=== PATIENT | male | born 1945 | race Caucasian/White ===

== ENCOUNTER 2016-10-28 16:45 | Emergency (ER) | payer OTHER, MEDICAID ==
--- NOTE | 2016-10-28 16:55 | EDPHY ---
H & P HPI/ROS: CHIEF COMPLAINT: Suicidality HISTORY OF PRESENT ILLNESS: The patient is a 71-year-old man with history of dimension bipolar who was sent from [facility] because the nursing staff there stated that he was making suicidal statements. The patient denies this to me and to EMS. He reports that he is depressed but is not suicidal. He also reports that he has had a burning sensation throughout his entire body. He has complained of some dysuria over the last few days as well. REVIEW OF SYSTEMS: Constitutional: See HPI denies: chills, fever, recent illness, recent injury EENTM: denies: blurred vision, double vision, nose congestion Respiratory: denies: cough, shortness of breath Cardiac: denies: chest pain, irregular heart rate, lightheadedness, palpitations Gastrointestinal/Abdominal: denies: abdominal pain, diarrhea, nausea, vomiting, blood streaked stools Genitourinary: denies: dysuria, frequency, hematuria, pain Musculoskeletal: denies: joint pain, muscle pain Skin: denies: lesions, rash, jaundice, bruising Neurological: denies: headache, numbness, paresthesia, tingling, dizziness, weakness Hematologic/Lymphatic: denies: blood clots, easy bleeding, easy bruising Immunologic/allergic: denies: HIV/AIDS, transplant EXAM: GENERAL: Well-appearing, well-nourished and in no acute distress. HEAD: Atraumatic, normocephalic. EYES: Pupils equal round and reactive to light, extraocular movements intact, sclera anicteric, conjunctiva are normal. ENT: TMs normal, nares patent, oropharynx clear without exudates. Moist mucous membranes. NECK: Normal range of motion, supple without lymphadenopathy or JVD. LUNGS: Breath sounds clear to auscultation bilaterally and equal. No wheezes rales or rhonchi. HEART: Regular rate and rhythm without murmurs, rubs or gallops. ABDOMEN: Soft, nontender, normoactive bowel sounds. No guarding, no rebound. No masses appreciated. BACK: No CVA tenderness, no spinal tenderness, step-offs or deformities EXTREMITIES: Normal range of motion, no pitting or edema. No clubbing or cyanosis. NEUROLOGICAL: Cranial nerves II through XII grossly intact. Normal speech, normal gait. 5/5 strength, normal movement in all extremities, normal sensation PSYCH: Slightly flat affect. SKIN: Warm, dry, normal turgor, no visible rashes or lesions. Source: Patient Exam Limitations: No limitations - Medical/Surgical History Hx Asthma: No Hx Chronic Respiratory Disease: No Hx Diabetes: No Hx Cardiac Disease: No Hx Renal Disease: No Hx Cirrhosis: No Hx Alcoholism: No Other PMH: Dementia, bipolar - Family History Significant Family History: No pertinent family hx - Social History Smoking Status: Never smoked Alcohol Use: Sober Drug Use: None Constitutional: Initial Vital Signs Temperature (C) 36.8 C 10/28/16 16:51 Heart Rate 97 10/28/16 16:51 Respiratory Rate 18 10/28/16 16:51 Blood Pressure 121/72 H 10/28/16 16:51 O2 Sat (%) 93 10/28/16 16:51 O2 Delivery Mode Room Air Allergies/Adverse Reactions: Penicillins Allergy (Verified 10/28/16 16:50) Home Medications: Medication Instructions Recorded Abilify 2 mg (*) 10/28/16 Ativan 10/28/16 BENADRYL 10/28/16 Ferrous Sulfate 10/28/16 LAMOTRIGINE 10/28/16 Lidocaine 2% Jelly 10/28/16 Protonix 10/28/16 Tamsulosin HCl 10/28/16 Uribel Capsule 10/28/16 Zofran 10/28/16 traMADol 10/28/16 Medical Decision Making ED Course/Re-evaluation: 6:00 p.m. the patient is medically cleared for psychiatric evaluation. 8:30 p.m. patient has been evaluated by Mental Health they plan to admit to a crisis stabilization unit. 9:45 p.m. care transferred to Dr. Mak. We are awaiting psychiatric placement. Differential Diagnosis: Partial list of the Differential diagnosis considered include but were not limited to; depression, suicidality, psychosis, and although unlikely based on the history and physical exam, I also considered electrolyte abnormality, indigestion, fever, infection. - Data Points Laboratory Results: Laboratory Results 10/28/16 16:50 10/28/16 16:50 Medications Given: Discontinued Medications Lorazepam (Ativan) 0.5 mg PO EDNOW ONE Stop: 10/28/16 21:26 Last Admin: 10/28/16 22:00 Dose: 0.5 mg Trazodone HCl (Trazodone) 150 mg PO EDNOW ONE Stop: 10/28/16 21:26 Last Admin: 10/28/16 22:00 Dose: 150 mg Departure - Departure Disposition: Other Psych, Not [place] Clinical Impression: Severe major depression Dementia Qualifiers: Dementia type: unspecified type Dementia behavioral disturbance: with behavioral disturbance Qualified Code(s): F03.91 - Unspecified dementia with behavioral disturbance Condition: Fair Referrals: Patient,NotPresent [Unknown] - As per Instructions
[2016-10-28 16:57] VITALS: TEMP 98.2
[2016-10-28 17:05] LABS: % IMMATURE GRANULYOCYTES 0.2 % (0.0-1.1); ABSOLUTE IMMATURE GRANULOCYTES 0.01 10^3/uL (0.00-0.10); ADD DIFF? NO; ADD MORPH? NO; ADD SCAN? NO; ATYPICAL LYMPHOCYTE FLAG 0 (0-99); FRAGMENT RBC FLAG 0 (0-99); HEMATOCRIT 48.8 % (40.0-51.0); HEMOGLOBIN 16.1 g/dL (13.7-17.5); LEFT SHIFT FLG 0 (0-99); LIPEMIA HEMOLYSIS FLAG 80 (0-99); MEAN CELL HEMOGLOBIN 30.3 pg (27.9-34.1); MEAN CELL VOLUME 91.7 fL (81.5-99.8); MEAN PLATELET VOLUME 8.3 fL (8.7-11.7); PLATELET CLUMPS FLAG 0 (0-99); PLATELET COUNT 221 10^3/uL (150-400); RED BLOOD CELL COUNT 5.32 10^6/uL (4.40-6.38); RED CELL DISTRIBUTION WIDTH 15.4 % (11.5-15.2)
[2016-10-28 17:21] LABS: ANION GAP 9 mEq/L (8-16); CALCIUM 9.5 mg/dL (8.5-10.4); CARBON DIOXIDE 24 mEq/l (22-31); CHLORIDE 103 mEq/L (97-110); ETHANOL SERUM < 10 mg/dL (0-10); GLOMERULAR FILTRATION RATE > 60; GLUCOSE 102 mg/dL (70-100); POTASSIUM 4.5 mEq/L (3.5-5.2); SODIUM 136 mEq/L (134-144)
[2016-10-28 17:33] LABS: COLOR BLUE; LEUKOCYTE ESTERASE,URINE NEGATIVE (NEGATIVE); NITRITE,URINE NEGATIVE (NEGATIVE)
[2016-10-28] MEDS ORDERED: traZODone 50 MG TAB PO ONE (21:25)
[2016-10-28] MEDS ORDERED: LORazepam 0.5 MG TAB PO ONE (21:25)
[2016-10-28 22:09] VITALS: RESP 16; O2SAT 94
[2016-10-29 02:09] VITALS: BP 112/78; PULSE 81
== END 2016-10-29 02:10 ==
LOC: EDUNIT#
DX: F32.2 Major depressive disorder, single episode, severe without psychotic features (principal); F03.91 Unspecified dementia, unspecified severity, with behavioral disturbance
CPT/HCPCS: 80305; G0480

== ENCOUNTER 2016-11-04 08:51 | Inpatient (IN) | payer OTHER, MEDICAID ==
--- NOTE | 2016-11-04 09:11 | EDPHY ---
H & P - Medical/Surgical History Hx Asthma: No Hx Chronic Respiratory Disease: No Hx Diabetes: No Hx Cardiac Disease: No Hx Renal Disease: No Hx Cirrhosis: No Hx Alcoholism: No Hx HIV/AIDS: No Hx Splenectomy or Spleen Trauma: No Other PMH: Dementia, bipolar - Social History Smoking Status: Never smoked Time Seen by Provider: 11/04/16 08:59 HPI/ROS: CHIEF COMPLAINT: suicidal ideation HISTORY OF PRESENT ILLNESS: 71-year-old male arrives via ambulance on an M1 hold from his [facility] complaining of some increasing depression, suicidal ideation with plan to place a magnet over his pacemaker. Denies attempt. Denies pain. Denies dizziness. Denies syncope or near-syncope. Denies ingestion. Denies alcohol or drug use. Denies self-injury. Denies hallucination. REVIEW OF SYSTEMS: A ten point review of systems was performed and is negative with the exception of the items mentioned in the HPI PAST MEDICAL & SURGICAL HISTORY: Pacemaker. Bipolar disorder SOCIAL HISTORY: denies alcohol or drug use PHYSICAL EXAM (Prior to examination, patient consented to physical exam, hands were washed and my usual and customary physical exam procedures followed) 1) GENERAL: Well-developed, well-nourished, alert and oriented. Appears to be in no acute distress. 2) HEAD: Normocephalic, atraumatic 3) HEENT: Pupils equal, round, reactive to light bilaterally. Sclera anicteric. 4) NECK: Full range of motion, no meningeal signs. 5) LUNGS: Clear auscultation bilaterally, no wheezes, no rhonchi, no retractions. Left chest pacer location noted 6) HEART: Regular rate and rhythm, no murmur, no heave, no gallop. 7) ABDOMEN: No guarding, no rebound, no focal tenderness, negative McBurney's, 8) MUSCULOSKELETAL: Moving all extremities, no focal areas of tenderness, no obvious trauma. No peripheral edema or discoloration. 9) BACK: no step-off, no obvious trauma, no visual or palpable abnormality. 10) SKIN: No rash, no petechiae. 11) Psychiatric: Patient is oriented X 3, there is no agitation. DIFFERENTIAL DIAGNOSIS: is in no particular include but limited to suicidal ideation, homicidal ideation, depression (Javad,Jerardo Teetee) Constitutional: Initial Vital Signs Temperature (C) 36.3 C 11/04/16 09:09 Heart Rate 75 11/04/16 09:09 Respiratory Rate 15 11/04/16 09:09 Blood Pressure 128/67 H 11/04/16 09:09 O2 Sat (%) 97 11/04/16 09:09 O2 Delivery Mode Room Air Allergies/Adverse Reactions: Penicillins Allergy (Verified 11/04/16 09:06) Home Medications: Medication Instructions Recorded Ativan 10/28/16 Ferrous Sulfate 10/28/16 Protonix 10/28/16 Uribel Capsule 10/28/16 Zofran 10/28/16 traMADol 10/28/16 ARIPiprazole [Abilify 2 mg (*)] 11/04/16 Colace 11/04/16 Flomax 11/04/16 LORazepam [Ativan (*)] 0.5 mg PO 11/04/16 LaMICtal 11/04/16 Lidocaine 2% Jelly [Lidocaine 2% 11/04/16 Jelly (*)] Meth/Meblue/Sod Phos/Psal/Hyos 1 each PO 11/04/16 [Uro-Mp Capsule] Miralax 17 gm (*) 11/04/16 Mirtazapine [Remeron soltab 15 mg 15 mg PO DAILY 11/04/16 (*)] Pantoprazole Sodium [Protonix 40mg 40 mg PO BID 11/04/16 (*)] Seroquel 11/04/16 Sucralfate [Carafate] 1 gm PO 11/04/16 Tamsulosin HCl [Flomax 0.4 MG (*)] 0.4 mg PO DAILY 11/04/16 lamoTRIgine [LamICTAL 100 MG (*)] 200 mg PO 11/04/16 traZODone [traZODone 150MG (*)] 11/04/16 Medical Decision Making ED Course/Re-evaluation: 9:20 a.m.: Discussed case with Dr Sweet in ER., old medical records reviewed. The patient was in the emergency department 1 week ago for similar complaints. 3:00 p.m.: Patient remains calm and cooperative. Mental health test engine evaluator looking for placement possibly [address] 5:00 p.m.: Care turned over to Dr. Diaz in the ER (Jerardo Farnsworth) 6:00 p.m.-this patient has been accepted to [address] [place] [address] Mota[address] (Jenni Diaz) - Data Points Laboratory Results: Laboratory Results 11/04/16 09:15 11/04/16 09:15 11/04/16 11/04/16 11/04/16 09:19 09:15 09:15 WBC 5.71 10^3/uL 10^3/uL (3.80-9.50) RBC 5.28 10^6/uL 10^6/uL (4.40-6.38) Hgb 16.0 g/dL g/dL (13.7-17.5) Hct 48.8 % % (40.0-51.0) MCV 92.4 fL fL (81.5-99.8) MCH 30.3 pg pg (27.9-34.1) MCHC 32.8 g/dL g/dL (32.4-36.7) RDW 14.7 % % (11.5-15.2) Plt Count 207 10^3/uL 10^3/uL (150-400) MPV 8.4 fL L fL (8.7-11.7) Neut % (Auto) 64.2 % % (39.3-74.2) Lymph % (Auto) 20.7 % % (15.0-45.0) Toombs % (Auto) 11.4 % % (4.5-13.0) Eos % (Auto) 3.2 % % (0.6-7.6) Baso % (Auto) 0.5 % % (0.3-1.7) Nucleat RBC Rel Count 0.0 % % (0.0-0.2) Absolute Neuts (auto) 3.67 10^3/uL 10^3/uL (1.70-6.50) Absolute Lymphs (auto) 1.18 10^3/uL 10^3/uL (1.00-3.00) Absolute Monos (auto) 0.65 10^3/uL 10^3/uL (0.30-0.80) Absolute Eos (auto) 0.18 10^3/uL 10^3/uL (0.03-0.40) Absolute Basos (auto) 0.03 10^3/uL 10^3/uL (0.02-0.10) Absolute Nucleated RBC 0.00 10^3/uL 10^3/uL (0-0.01) Immature Gran % 0.0 % % (0.0-1.1) Immature Gran # 0.00 10^3/uL 10^3/uL (0.00-0.10) Sodium 139 mEq/L mEq/L (134-144) Potassium 4.1 mEq/L mEq/L (3.5-5.2) Chloride 104 mEq/L mEq/L (97-110) Carbon Dioxide 25 mEq/l mEq/l (22-31) Anion Gap 10 mEq/L mEq/L (8-16) BUN 15 mg/dL mg/dL (7-23) Creatinine 1.0 mg/dL mg/dL (0.7-1.3) Estimated GFR > 60 Glucose 87 mg/dL mg/dL (70-100) Calcium 9.3 mg/dL mg/dL (8.5-10.4) TSH Pending Salicylates < 1.0 mg/dL L mg/dL (2.0-20.0) Urine Opiates Screen Acetaminophen < 10 mcg/mL L mcg/mL (10-30) Urine Barbiturates Ur Phencyclidine Scrn Ur Amphetamine Screen U Benzodiazepines Scrn Urine Cocaine Screen U Marijuana (THC) Screen Ethyl Alcohol < 10 mg/dL mg/dL (0-10) 11/04/16 09:00 WBC RBC Hgb Hct MCV MCH MCHC RDW Plt Count MPV Neut % (Auto) Lymph % (Auto) Toombs % (Auto) Eos % (Auto) Baso % (Auto) Nucleat RBC Rel Count Absolute Neuts (auto) Absolute Lymphs (auto) Absolute Monos (auto) Absolute Eos (auto) Absolute Basos (auto) Absolute Nucleated RBC Immature Gran % Immature Gran # Sodium Potassium Chloride Carbon Dioxide Anion Gap BUN Creatinine Estimated GFR Glucose Calcium TSH Salicylates Urine Opiates Screen NEGATIVE (NEGATIVE) Acetaminophen Urine Barbiturates NEGATIVE (NEGATIVE) Ur Phencyclidine Scrn NEGATIVE (NEGATIVE) Ur Amphetamine Screen NEGATIVE (NEGATIVE) U Benzodiazepines Scrn NEGATIVE (NEGATIVE) Urine Cocaine Screen NEGATIVE (NEGATIVE) U Marijuana (THC) Screen NEGATIVE (NEGATIVE) Ethyl Alcohol Departure - Departure Disposition: [facility] IP Clinical Impression: Severe major depression, Suicidal ideation Condition: Fair Referrals: Patient,NotPresent [Unknown] - As per Instructions
--- NOTE | 2016-11-04 09:26 | CPEKG ---
Heart Rate: 72 RR Interval: 833 P-R Interval: 156 QRSD Interval: 176 QT Interval: 444 QTC Interval: 486 P [place]: -64 QRS [place]: -78 T Wave [place]: 108 EKG Severity - ABNORMAL ECG - EKG Impression: ATRIAL-SENSED VENTRICULAR-PACED COMPLEXES EKG Impression: NONSPECIFIC IVCD WITH LAD EKG Impression: LVH WITH SECONDARY REPOLARIZATION ABNORMALITY Electronically Signed By: Jenni Diaz 04-Nov-2016 23:05:23
[2016-11-04 09:27] LABS: ADD DIFF? NO; ADD MORPH? NO; ADD SCAN? NO; ATYPICAL LYMPHOCYTE FLAG 0 (0-99); FRAGMENT RBC FLAG 0 (0-99); HEMATOCRIT 48.8 % (40.0-51.0); LEFT SHIFT FLG 0 (0-99); LIPEMIA HEMOLYSIS FLAG 80 (0-99); MEAN CELL HEMOGLOBIN 30.3 pg (27.9-34.1); MEAN CELL HEMOGLOBIN CONCENTR. 32.8 g/dL (32.4-36.7); MEAN CELL VOLUME 92.4 fL (81.5-99.8); MEAN PLATELET VOLUME 8.4 fL (8.7-11.7); PLATELET CLUMPS FLAG 0 (0-99); PLATELET COUNT 207 10^3/uL (150-400); RED BLOOD CELL COUNT 5.28 10^6/uL (4.40-6.38); RED CELL DISTRIBUTION WIDTH 14.7 % (11.5-15.2)
[2016-11-04 09:45] LABS: ANION GAP 10 mEq/L (8-16); CALCIUM 9.3 mg/dL (8.5-10.4); CARBON DIOXIDE 25 mEq/l (22-31); CHLORIDE 104 mEq/L (97-110); ETHANOL SERUM < 10 mg/dL (0-10); GLOMERULAR FILTRATION RATE > 60; GLUCOSE 87 mg/dL (70-100); POTASSIUM 4.1 mEq/L (3.5-5.2); SALICYLATE < 1.0 mg/dL (2.0-20.0); SODIUM 139 mEq/L (134-144)
[2016-11-04] MEDS ORDERED: MAGNESIUM HYDROXIDE 30 ML UDCUP PO PRN (22:07)
[2016-11-04] MEDS ORDERED: MAG HYDROX/AL HYDROX/SIMETH 30 ML UDCUP PO PRN (22:07)
[2016-11-04] MEDS ORDERED: NICOTINE POLACRILEX 2 MG GUM B PRN (22:07)
[2016-11-04] MEDS ORDERED: MELATONIN 3 MG TAB PO PRN (22:08)
[2016-11-04] MEDS ORDERED: MIRTAZAPINE 15 MG TAB PO SCH (22:15)
[2016-11-05] MEDS: LORazepam 0.5 MG TAB PO PRN ×2 (07:59→16:44)
[2016-11-05] MEDS: OLANZapine 5 MG TAB PO SCH ×3 (09:36→18:54)
[2016-11-05] MEDS: TAMSULOSIN HCL 0.4 MG CAP PO SCH (09:36)
[2016-11-05] MEDS: FLUoxetine 10 MG CAP PO SCH (09:36)
[2016-11-05] MEDS: OLANZapine 2.5 MG TAB PO PRN (09:40)
[2016-11-05] MEDS: PANTOPRAZOLE SODIUM 40 MG TAB PO SCH (09:40)
[2016-11-05] MEDS: PSYLLIUM METAMUCIL 1 PKT PO SCH (09:40)
--- NOTE | 2016-11-05 10:14 | BAPA ---
[f rep st] ADMISSION PSYCHIATRIC ASSESSMENT CHIEF COMPLAINT: The patient is a 71-year-old white male whose chief complaint to me today is, "I'm not doing so well today." HISTORY OF PRESENT ILLNESS: The patient is a 71-year-old male with a history of bipolar mood disorder. He has been hospitalized for manic episodes. He has also been hospitalized for depressive episodes. He relates to me that he has been hospitalized multiple times over his life span, but thinks this is the first time he has been hospitalized here at [facility]. I am unable to find a recent previous admission for him. He has lived independently until a few months ago. He moved into the [facility] this summer. That has been stressful for him. His anxiety is increased, and his mood has dropped since that point in time. He was recently hospitalized at [facility] and treated at [facility] for awhile. I do not yet have all the records from that, and the patient is vague about this piece of his history. Today, he complains of being "messed up." He says that he became more depressed and extremely anxious and tried to kill himself. He says, "I tried to break my pacemaker." He relates a history of having a pacemaker/ defibrillator placed several years ago and replaced once. He says that this was done because "my heart stopped." He tells me his upsetter helper is Adams Nation MD. He has not seen his upsetter helper in a while. The history suggests that he was looking for some kind of magnet with which he could effect his pacemaker to actually have it kill him. At this point in time , he says he does not want to . He is not having any more ongoing suicidal thinking. When he gets overwhelmed by anxiety, he gets so uncomfortable that he wishes he were . While he is anxious now, he does not feel that bad and does not want to . He cites his daughter, Esther, as a reason to remain alive. He understands that his will hurt her, and because of this, he does not want to . He endorses having anxiety that builds to panic proportions. He endorses anxiety can build to where, "I start burning up, and I feel like I can't take it anymore." He gets tremulous, heart palpitations, gastrointestinal distress, and some shortness of breath. It does sound like he is having panic attacks. He also admits that his mood has been very depressed over the past 2 weeks. He endorses multiple symptoms of depression (see below) and appears to be going through a recurrence or exacerbation of his underlying bipolar mood disorder. The other issue about this patient is he does have a history of alcohol abuse. He readily admits that he is an alcoholic. He quit drinking around the age of 61 but has had a couple of relapses since that time. He says he has been sober for 1 year at this point in time. CURRENT REVIEW OF SYSTEMS: He endorses depressed mood for more than 2 weeks at this point in time. His sleep has been poor, hard to fall asleep and hard to maintain sleep. His appetite has been down, and he thinks he has lost weight. His concentration is low. His energy is very low. He endorses feelings of guilt. He denies ongoing or active suicidal thinking at this point in time. He denies auditory or visual hallucinations. He does endorse feeling very anxious with significant tremulousness. He does not think he is in a panic attack but is near a panic attack. SOCIAL HISTORY: He denies tobacco use. He admits to a history of alcohol abuse but is not drinking at this point in time and has been sober for more than a year. He denies substance use. He has 1 daughter, Esther, who lives in [place]. He has an ex- in this area, but he is not close to her. He lived much of his life in [place] and worked as an auto parts clerk. ALLERGIES: He has an allergy to penicillin. MEDICATIONS: He does not know his active medications. I reviewed his record, which suggests that he has been on trazodone, Ativan, Protonix, Flomax, tramadol , Uribel, Zofran, Colace, MiraLAX, iron, Seroquel, and Lamictal. PAST MEDICAL HISTORY: Remarkable for heart problems and having a pacemaker/ defibrillator placed. I do not have further details at this point in time. He denies depression. He denies hypertension. PAST PSYCHIATRIC HISTORY: Remarkable for treatment for bipolar mood disorder. He thinks his last manic episode was about 4 months ago. MENTAL STATUS EXAMINATION: He is awake and alert. He moves slowly today. He is poorly groomed, unshaven and looks unkempt. Some of his clothes are dirty. He appears nervous. His leg shakes throughout the interview. His eyes are downcast, he makes limited eye contact through the interview. His speech is slow in rate and monotonous in tone. His stated mood and affect are congruent, both depressed. He does not appear to be distracted by internal stimuli during the interview. His thought processes are slow but linear. His thought content is mostly around his anxiety and his depressed mood. His insight and judgment are poor to fair at times. IMPRESSION: The patient is a 71-year-old white male with bipolar mood disorder who appears to be presenting with a severe depressive disorder. This is complicated by significant anxiety that does appear to reach panic proportions. Also, he worries about his anxiety, and it has affected his progress through life so I think he has panic disorder as well. His current medications are proved to be inadequate. I talked to him about trying a combination of olanzapine and fluoxetine. Olanzapine can be a very potent anxiety product development engineer as well as a mood stabilizer. Fluoxetine, of course, is a good antidepressant and anxiety product development engineer as well. This combination might prove helpful for him. Since the main problem with olanzapine is increased appetite and weight gain and we would like to see some increased appetite in this patient, he might actually benefit from the potential downside. Also would give the largest dose at bedtime to see if it can help with sleep. We can use benzodiazepines temporarily, but I would not suggest them long-term in this patient as they are likely to be habituating and predispose him to falls. We will try some adjustments to his medication regimen and see if we can help get a better handle on his anxiety and depressed mood. He is admitted on 72- hour mental health hold. He is followed at the [facility] and might be a good candidate for [facility] when he improves. He is sober off alcohol, and we encouraged him to continue his sobriety. ASSESSMENT: 1. Bipolar mood disorder, most current episode depressed, severe without psychotic features. 2. History of alcohol dependence. 3. Panic disorder. 4. Cardiac problems, would like more history on this. 5. Benign prostatic hyperplasia. 6. Constipation. PLAN: 1. Admit on a 72-hour mental health hold which expires 11/07/16 at 0800. 2. Continue to collect collateral information. 3. Start a combination of olanzapine and fluoxetine. 4. Restart usual outpatient medications to try to simplify medication regimen. 5. Consider followup with [facility] and possibly transition through [facility] back to outpatient placement. /[id number]/MODL MTDD
--- NOTE | 2016-11-05 15:05 | BCON ---
[f rep st] BEHAVIORAL HEALTH CONSULTATION INTERNAL MEDICINE CONSULTATION DATE OF CONSULTATION: 11/05/2016 REFERRING PHYSICIAN: Sarah Mota MD REASON FOR REFERRAL: Medical clearance for inpatient behavioral health stay. HISTORY OF PRESENT ILLNESS: This patient was transferred from [facility] where he lives for depression and suicidal ideation. He was planning to place a magnet over his pacemaker, thinking that this would cause it to malfunction and bring about his . He was evaluated by the mental health team and admitted for further psychiatric care. He currently reports that he is groggy and that he did not sleep well last night. Otherwise, he is without any acute complaints. PAST MEDICAL HISTORY: 1. Cardiac dysrhythmia, though he is unable to state what exactly it was. 2. BPH. 3. Dysuria. 4. Bipolar disorder. 5. Central and obstructive sleep apnea. 6. Iron deficiency anemia. 7. Hypogonadism. MEDICATIONS: Prior to admission, he is unclear on what medications he was taking. The medical record reports: 1. Trazodone 150 mg at bedtime. 2. Lamotrigine 200 mg p.o. daily. 3. Tamsulosin 0.4 mg p.o. daily. 4. Sucralfate 1 g p.o. daily. 5. Pantoprazole 40 mg p.o. twice daily. 6. Mirtazapine 15 mg p.o. daily. 7. Methylene blue/hyoscyamine capsules 1 p.o. daily. 8. Lorazepam 0.5 mg. 9. Aripiprazole 2 mg. 10. Tramadol. 11. Iron sulfate. However, many of these are likely to be old prescriptions. ALLERGIES: Listed to penicillins. SOCIAL HISTORY: He lives at [facility] for approximately 2 months. Prior to that, he had a psychiatric hospitalization. 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 He is a nonsmoker. FAMILY HISTORY: Noncontributory. REVIEW OF SYSTEMS: He reports a reduced appetite. He denies nausea, vomiting, constipation, or diarrhea. He reports hot flashes in which he feels that his face and chest are getting hot. These happen periodically and occasionally awaken him from sleep. He feels groggy and thinks that he did not sleep well last night, partly due to anxiety about his admission to Inpatient Psychiatry. He denies cough, dyspnea, fevers, chills, weight change, chest pain, palpitations. He has no dysuria currently, though he does have urinary frequency. He denies joint pain or joint swelling. He denies skin rash or skin breakdown. PHYSICAL EXAM: VITAL SIGNS: Blood pressure is 146/67, but otherwise has not been elevated during his stay. Heart rate is 80, respiratory rate is 14, oxygen saturation is 99% on room air. Temperature is 36.5 degrees centigrade. His weight is 76.2, for a body mass index of 24.1. GENERAL: This is an elderly man, appears his chronologic age, somewhat unkempt, cooperative and in no acute distress. HEENT: Extraocular movements are intact. Pupils are equal , round, reactive to light. Mucous membranes are moist. Dentition is in fair condition with several missing teeth in the left anterior mandible. He has a crowded airway, Mallampati class 3-4. NECK: Supple. HEART: There is a regular rate and rhythm with no murmurs, rubs, or gallops. LUNGS: Clear to auscultation bilaterally. ABDOMEN: Soft, nontender, nondistended with normoactive bowel sounds. EXTREMITIES: There is no cyanosis, clubbing, or edema. NEUROLOGIC: He is alert, he is oriented to his location and situation. He is off by 2 on the date, thinking that it is November 03 rather than . Cranial nerves 2-12 are grossly intact. There is no focal weakness. Sensation is intact to light touch. He has a mild resting tremor in the right upper extremity. Gait is within normal limits. LABORATORY STUDIES: Drawn in the emergency department: CBC was overall within normal limits. He had a very slight decrement of mean platelet volume of no clinical significance. Serum chemistry revealed normal renal function and electrolytes. TSH was normal at 0.964. Toxicology screen in the serum was negative for salicylates, acetaminophen or ethyl alcohol, and in the urine was negative for substances of abuse. Upon further chart review, he had anemia with profound iron deficiency as well as a positive Hemoccult in 2013. He also had profound hypogonadism with a very low free testosterone level. Again, this was in 2013. He had a normal lipid panel. There have been multiple urinalyses done in 2014, 1 of which appeared positive for infection; however, urine cultures have been negative. He had a positive Clostridium difficile in stool test in 2013. ASSESSMENT/RECOMMENDATIONS: 1. Mental health issues, pending further evaluation and management per Psychiatry and the mental health team. 2. Benign prostatic hypertrophy. Advised continuing tamsulosin. 3. Presence of pacemaker. It is unlikely that he could do himself any serious harm with a magnet. 4. Hot flashes, unclear etiology. Consider repeating testosterone testing, especially if his mood state proves refractory. There was no actual flushing observed, though he reported he was feeling hot at the time of the exam. 5. Sleep apnea, both central and obstructive. On his sleep study of 09/14/2013 , it was recommended that he use BiPAP as well as an ASV for both central and obstructive sleep apnea. It would be worth finding out if he ever obtained the device and if he has been using it. If so, it should be continued while he is here. 6. Possible dementia with disorientation to the date, simple concrete answers to questions, and a poor historian regarding medical history. Consider cognitive testing per Speech Therapy or Clinical Psychology. A speech therapy evaluation could be obtained while he is inpatient. 7. Tremor of unclear etiology. No particular further evaluation or management is indicated. I see no medical contraindications to this patient's continued stay on the inpatient behavioral health unit or to any psychiatric medications or procedures. Thank you very much for including me in the care of this patient and please do not hesitate to contact me or the hospitalist service should there be need for further medical evaluation. /[id number]/MODL MTDD
[2016-11-06] MEDS: PSYLLIUM METAMUCIL 1 PKT PO SCH (10:22)
[2016-11-06] MEDS: TAMSULOSIN HCL 0.4 MG CAP PO SCH (10:22)
[2016-11-06] MEDS: PANTOPRAZOLE SODIUM 40 MG TAB PO SCH (10:22)
[2016-11-06] MEDS: FLUoxetine 10 MG CAP PO SCH (10:22)
[2016-11-06] MEDS: LORazepam 0.5 MG TAB PO PRN ×2 (12:17→17:23)
--- NOTE | 2016-11-06 14:36 | SOAPPROG ---
SOAP Progress Note Assessment/Plan: Assessment: 71 yo man with prior h/o bipolar. He moved into [facility] this Summer and appears to have experienced worsening depression and anxiety as a result of the transition. 11/06/16 14:31 Plan: 1. Continue on Olanzapine and fluoxetine combo. 2. Patient appears to have some word-finding, memory and decision making problems. It's possible he is suffering from dementia in addition to mood related problems. The combination of cognitive impairment as well as the situational stressors of [facility] may be most likely cause of his depression and anxiety, rather than a true manifestation of his bipolar disorder. Subjective: Met with patient, reviewed chart and discussed with staff. Patient c/o feeling "dizzy" and "crummy." He reports these are physical sxs and denies he feels bad d/t depressed mood or anxiety. He denies any SI/HI, no paranoia or psychosis. He was unsteady on his feet earlier, but VSS. He is on fall precautions and LOS. Objective: Vital Signs Temp Pulse Resp BP Pulse Ox 36.6 C 70 12 128/62 H 94 11/06/16 06:48 11/06/16 06:48 11/06/16 06:48 11/06/16 06:48 11/06/16 06:48 MSE: Lying in bed, patient sits up and stands up without stumbling or falling down. Denies feeling lightheaded or dizzy, though reported these sxs earlier. VSS. Affect: Flat Mood: "Crummy" TP: Disorganized TC: Denies any SI/HI, no AH /VH Insight/Judgment: Poor - Time Spent With Patient Time Spent With Patient: 20" - Pending Discharge Pending Discharge Within 24 Hours: No Pending Discharge Within 48 Hours: No ICD10 Worksheet Patient Problems: Problems Problem Status Onset Severe major depression Acute Suicidal ideation Acute
[2016-11-06] MEDS: OLANZapine 5 MG TAB PO SCH (20:38)
[2016-11-06] MEDS: MELATONIN 3 MG TAB PO PRN (22:06)
[2016-11-06] MEDS: OLANZapine 2.5 MG TAB PO PRN (22:08)
[2016-11-07] MEDS: FLUoxetine 10 MG CAP PO SCH (08:30)
[2016-11-07] MEDS: PANTOPRAZOLE SODIUM 40 MG TAB PO SCH (08:30)
[2016-11-07] MEDS: TAMSULOSIN HCL 0.4 MG CAP PO SCH (08:30)
[2016-11-07] MEDS: PSYLLIUM METAMUCIL 1 PKT PO SCH (08:30)
--- NOTE | 2016-11-07 13:32 | SOAPPROG ---
PIERRE Progress Note Assessment/Plan: Assessment: 71 yo man with prior h/o bipolar. He moved into [facility] this Summer and appears to have experienced worsening depression and anxiety as a result of the transition. 11/06/16 14:31 Plan: 1. Continue on Olanzapine and fluoxetine combo. 2. Patient appears to have some word-finding, memory and decision making problems. It's possible he is suffering from dementia in addition to mood related problems. The combination of cognitive impairment as well as the situational stressors of moving to [facility] may be most likely cause of his depression and anxiety, rather than a true manifestation of his bipolar disorder. 11/07/16 13:26 1. Patient more alert and engaging in conversation. Also demonstrates better recall of facts and more fluent speech. He does have some difficulty with recent hospitalization details, can't exactly remember where or when he was hospitalized. 2. Admits that reason he was depressed and wanted to was transition to [facility]. He says his daughter placed him there d/t multiple recent hospitalizations and because "she didn't want to deal with me anymore." He says he wished he could go to assisted living b/c he'd have "more control" and "freedom." But says he is resigned to returning to [facility] and says, "it's not so bad." He denies wanting to and says he isn't having any SI/HI. No signs or sxs of karthik or psychosis present. 3. Will reduce Zyprexa to 2.5mg as this may be sufficient given his age. Prozac should help with anxiety/situational depression. Recommend increased activities and routine to give him something to do at [facility]. 4. Change to voluntary status 5. Could return to [facility] Tuesday or Tuesday. Subjective: Met with patient and discussed with staff. Patient is more alert and engaging in conversation today. He says he had been living in trailer with his [facility] in [place] until she in 10/2015. After that, patient decompensated pretty quickly. He says he wasn't eating and lost almost 50lbs over several months. He was hospitalized several times, but can't remember where (thinks he was at [facility]). His daughter decided to place him at [facility] because "she didn't want to deal with all the hospitals." He says he "hated it there at first" and that's why he started feeling depressed and wanted to . He says he wanted to be in an assisted living facility where he'd have "more control" and "freedom." He says now, "I don't want to " and admits that [facility] "isn't that bad, they take care of me at least." He is willing to return there and see Dr. Leija at [facility]. Objective: Vital Signs Temp Pulse Resp BP Pulse Ox 36.5 C 70 16 123/61 H 93 11/07/16 06:00 11/07/16 06:00 11/07/16 06:00 11/07/16 06:00 11/07/16 06:00 MSE: Pleasant, cooperative, more talkative. Affect: Euthymic Mood: "OK" TP: Linear, goal-directed TC: Denies any SI/HI, no AH/VH, no paranoia Insight/ Judgment: Fair - Time Spent With Patient Time Spent With Patient: 25" - Pending Discharge Pending Discharge Within 24 Hours: No Pending Discharge Within 48 Hours: Yes Pending Discharge Date: 11/09/16 (Could return to [facility] Tue or ) Pending Discharge Time: 11:00 ICD10 Worksheet Patient Problems: Problems Problem Status Onset Severe major depression Acute Suicidal ideation Acute
[2016-11-07] MEDS ORDERED: OLANZapine 5 MG TAB PO SCH (13:35)
[2016-11-07] MEDS: LORazepam 0.5 MG TAB PO PRN ×2 (14:27→23:32)
[2016-11-07] MEDS: OLANZapine 2.5 MG TAB PO PRN (14:27)
[2016-11-07] MEDS: MELATONIN 3 MG TAB PO PRN (20:10)
[2016-11-07] MEDS: OLANZapine 2.5 MG TAB PO SCH (20:12)
[2016-11-08] MEDS: FLUoxetine 10 MG CAP PO SCH (08:50)
[2016-11-08] MEDS: TAMSULOSIN HCL 0.4 MG CAP PO SCH (08:50)
[2016-11-08] MEDS: PANTOPRAZOLE SODIUM 40 MG TAB PO SCH (08:50)
[2016-11-08] MEDS: PSYLLIUM METAMUCIL 1 PKT PO SCH (08:50)
[2016-11-08] MEDS: GABAPENTIN 100 MG CAP PO SCH ×2 (16:21→19:58)
[2016-11-08] MEDS: MIRTAZAPINE 15 MG TAB PO SCH ×2 (16:22→19:55)
[2016-11-08] MEDS: LORazepam 0.5 MG TAB PO PRN (16:23)
--- NOTE | 2016-11-08 16:24 | SOAPPROG ---
SOAP Progress Note Assessment/Plan: Assessment: Bipolar Disorder type II, depressed with psychotic features Unspecified Anxiety Disorder Insomnia Akathisia versus Restless Leg Syndrome Mild Neurocognitive Disorder - possibly from past alcohol abuse Tardive Dyskinesia Patient reports chronic depression and anxiety and poor sleep, probable somatic delusions. Reports mild benefit from Olanzapine/Fluoxetine but appears restless. Denies SI but reports hopelessness and helplessness and severe somatic anxiety interfering with ability to engage to counseling, groups, or function in [facility]. Concern for anticonvulsant withdrawal (was on Lamictal 250mg prior to admit) Plan: Continue Olanzapine 2.5mg PO QHS Discontinue Fluoxetine (?akathisia), start Remeron 7.5mg PO QHS. Discussed risk of sedation and bipolar symptoms Start Gabapentin 100mg PO TID for akathisia Fall precautions, walker per PT Monitor mood/anxiety and ability to attend groups and interact appropriately Check B12 due to reduced cognition Check UA to rule out UTI (has BPH) 11/08/16 16:17 11/08/16 16:39 11/08/16 16:43 Subjective: Patient reports recurrent anxiety and depression for many years. Reports fear of physical symptoms and reduced memory for unclear amount of time. Reports past alcoholism but no drinking for past 6 months. Reports possible past benefit from [place] but hasn't taken in many years. Reports chronic insomnia, disrupted sleep, and restlessness. Reports no SI today but reports thoughts of and suicide prior to admit. Reports severe anxiety and sadness and unable to concentrate or engage in any activities and repeated fear of doom. Denies paranoia or AH. Denies constipation or difficulty urinating but possible fevers/sweats. Denies focal weakness but reports chronic slowing and balance problems. Objective: Vital Signs Temp Pulse Resp BP Pulse Ox 36.6 C 74 17 124/60 H 92 11/08/16 06:00 11/08/16 06:00 11/08/16 06:00 11/08/16 06:00 11/08/16 06:00 Alert WM. Tardive facial movements. Mild cogwheeling/slowing. Speech soft RRR. Mood: depressed/anxious. Affect sad, poor eye contact. Denies SI but reports thoughts of wanting to be , denies plan to harm self. Denies HI, AH. Somatic preoccupation. Possible somatic delusions, reporting feeling that head is burning and skin is crawling. Limited insight, questionable judgment. Frequently tapping leg. Glasses. Walks slowly. SLUMS , 04/11 word recall, 07/15 story recall - Time Spent With Patient Time Spent With Patient: 40 - Pending Discharge Pending Discharge Within 24 Hours: No Pending Discharge Within 48 Hours: No Physical Exam - Physical Exam General Appearance: alert, thin Neuro/Psych: alert, oriented x 3, cognition abnormalities, depressed affect ICD10 Worksheet Patient Problems: Problems Problem Status Onset Severe major depression Acute Suicidal ideation Acute
[2016-11-08] MEDS: OLANZapine 2.5 MG TAB PO PRN (17:26)
[2016-11-08] MEDS: OLANZapine 2.5 MG TAB PO SCH (19:56)
[2016-11-08] MEDS: MELATONIN 3 MG TAB PO PRN (19:57)
[2016-11-09] MEDS: GABAPENTIN 100 MG CAP PO SCH ×3 (08:19→20:24)
[2016-11-09] MEDS: LORazepam 0.5 MG TAB PO PRN (08:20)
[2016-11-09] MEDS: PSYLLIUM METAMUCIL 1 PKT PO SCH (08:20)
[2016-11-09] MEDS: TAMSULOSIN HCL 0.4 MG CAP PO SCH (08:20)
[2016-11-09] MEDS: PANTOPRAZOLE SODIUM 40 MG TAB PO SCH (08:20)
[2016-11-09 10:12] LABS: COLOR YELLOW; LEUKOCYTE ESTERASE,URINE NEGATIVE (NEGATIVE); NITRITE,URINE NEGATIVE (NEGATIVE)
--- NOTE | 2016-11-09 11:03 | SOAPPROG ---
SOAP Progress Note Assessment/Plan: Assessment: Bipolar Disorder type II, depressed with psychotic features Unspecified Anxiety Disorder Insomnia Akathisia versus Restless Leg Syndrome Mild Neurocognitive Disorder - possibly from past alcohol use Tardive Dyskinesia Patient slept better last night but had severe anxiety this AM and received PRN ativan with excessive sedation. Patient has anxiety symptoms related to severe depression and probable psychotic /nihilistic features but likely had akathisia from Prozac. Patient has reduced restlessness with gabapentin Concern patient is gravely disabled due to poor appetite, weight loss, and symptoms interfering with ability to interact appropriately with caregivers. Plan: Continue Olanzapine 2.5mg PO QHS - started this hospitalization Continue Remeron 7.5mg PO QHS (started 11/08/16 for depression, insomnia) Continue Gabapentin 100mg PO TID for akathisia Discontinue PRN Ativan Start Gabapentin 100mg PO TID PRN anxiety Monitor PO food intake. Weights three times a week. Fall precautions, walker per PT Monitor mood/anxiety and ability to attend groups and interact appropriately, somatic/nihilistic preoccupation B12 pending Plan discharge back to [facility] if anxiety/mood/appetite symptoms improve 11/09/16 11:03 Subjective: Patient reports feeling 'better but groggy.' Reports some reduction in anxiety and restlessness yesterday with low dose gabapentin. Reports sleeping well overnight but this AM felt anxious that he was being discharged today and fearful 'that I will never feel better.' Reports low mood and feeling hopeless and fearful that something bad is happening to him, fearing he won't get any better or feel better ever in the future. Reports after taking PRN ativan this morning having less anxiety but feels sedated and drowsy. Spoke on phone with daughter yesterday, reports missing her and wishing that she lived in [place] to visit him. Reports mild nausea and lack of appetite. Denies pain or weakness or vomiting; denies constipation or diarrhea. Objective: Vital Signs Temp Pulse Resp BP Pulse Ox 36.6 C 80 20 131/70 H 95 11/09/16 06:00 11/09/16 08:30 11/09/16 08:30 11/09/16 08:30 11/09/16 08:30 UA negative B12 pending Staff report patient has poor PO intake, eating 25% meals Disheveled WM, walks slowly with walker, limited eye contact, glasses. Reports depressed mood and feeling tired. Reports anxiety this AM but not now. Thoughts briefly organized with minimal information. Denies SI or HI. Nihilistic content, possible nihilistic delusions and somatic anxiety. Poor insight, questionable judgment. Denies AH or VH. Memory intact to major events with poor detail. - Time Spent With Patient Time Spent With Patient: 20 minutes - Pending Discharge Pending Discharge Within 24 Hours: No Pending Discharge Within 48 Hours: No Physical Exam - Physical Exam General Appearance: alert, anxiety Neuro/Psych: no motor/sensory deficits, abnormal gait, cognition abnormalities, depressed affect (walks slowly) ICD10 Worksheet Patient Problems: Problems Problem Status Onset Bipolar II, mixed, severe with psychotic behavior Acute Constipation Acute Insomnia Acute Suicidal ideation Acute Severe major depression Acute
[2016-11-09] MEDS: OLANZapine 2.5 MG TAB PO SCH (20:24)
[2016-11-09] MEDS: MIRTAZAPINE 15 MG TAB PO SCH (20:25)
[2016-11-09] MEDS: MELATONIN 3 MG TAB PO PRN (21:47)
[2016-11-10] MEDS: ACETAMINOPHEN 325 MG TAB PO PRN (00:15)
[2016-11-10] MEDS: GABAPENTIN 100 MG CAP PO PRN ×2 (04:19→13:48)
[2016-11-10] MEDS: FERROUS SULFATE 325 MG TAB PO SCH (08:00)
[2016-11-10] MEDS: TAMSULOSIN HCL 0.4 MG CAP PO SCH (08:01)
[2016-11-10] MEDS: GABAPENTIN 100 MG CAP PO SCH ×3 (08:01→20:29)
[2016-11-10] MEDS: OLANZapine 2.5 MG TAB PO PRN (08:01)
[2016-11-10] MEDS: PANTOPRAZOLE SODIUM 40 MG TAB PO SCH (08:01)
[2016-11-10] MEDS: PSYLLIUM METAMUCIL 1 PKT PO SCH (08:02)
[2016-11-10] MEDS ORDERED: clonazePAM 0.5 MG TAB PO PRN (09:18)
[2016-11-10] MEDS: LURASIDONE HCL 20 MG TAB PO SCH (10:27)
--- NOTE | 2016-11-10 10:47 | SOAPPROG ---
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 Reviewed Head CT 10/2015 from [facility]: atrophy, small vessel disease Spoke to daughter Esther Hodgson, who reports patient has had slow progressive memory decline for 1-2 years. Discussed that patient may have early Alzheimer's Disease (has apathy and short term memory impairment) but Aricept contraindicated due to history of bradycardia and poor PO intake/nausea. Reviewed discharge summaries from [facility] geriatric psychiatry unit 11/2015, 2016, diagnosed bipolar depression with psychotic features and anxiety, last discharge on Latuda 60mg, Lamictal 100mg BID, Wellbutrin, Klonopin 1mg QHS, Trazodone 100mg QHS, Flomax, Senna, Protonix. Plan: DIscontinue Olanzapine, Remeron - not effective, side effects Continue Gabapentin 100mg TID for akathisia, anxiety Continue Gabapentin 100mg TID PRN anxiety Restart Latuda 20mg PO QAM for bipolar depression Restart Klonopin, 0.5mg PO QHS PRN insomnia Recheck CBC, CMP Monitor PO food intake. Weights three times a week. Fall precautions, walker per PT Monitor mood/anxiety and ability to attend groups and interact appropriately, somatic/nihilistic preoccupation Plan discharge back to [facility] if anxiety/mood/appetite symptoms improve 11/09/16 11:03 11/10/16 10:41 Subjective: Patient reports feeling 'depressed, anxious, hopeless, feel real sick and shaky. ' Reports very poor sleep and feeling tired and dizzy this AM. Reports thoughts of wanting to 'if I don't get better' but denies plan to hurt self. Denies HI, AH, paranoia. Unable to explain past medication trials. Denies constipation or difficulty urinating. Reports poor appetite. Reports feeling restless at times but less than previous. Objective: Vital Signs Temp Pulse Resp BP Pulse Ox 36.2 C 105 H 18 157/69 H 94 11/10/16 06:00 11/10/16 08:15 11/10/16 08:15 11/10/16 08:15 11/10/16 08:15 Alert WM. Walks slowly with walker. Mild AIM of lower face. Speech RRR, soft voice. Mood 'depressed, anxious, hopeless' Affect dysphoric, anxious. THoughts briefly organized with a poverty of content. Thoughts of wanting to be , denies plan to hurt self. Denies paranoia or AH. Somatic preoccupation. Nihilistic comments. Poor insight, judgment. recent B12 and UA WNL Staff reports patient yesterday at 25% breakfast, 50% lunch, 75% dinner. Had reduced/disrupted sleep. - Time Spent With Patient Time Spent With Patient: 15 - Pending Discharge Pending Discharge Within 24 Hours: No Pending Discharge Within 48 Hours: No ICD10 Worksheet Patient Problems: Problems Problem Status Onset Mild neurocognitive disorder Acute Constipation Acute Insomnia Acute Bipolar II, mixed, severe with psychotic behavior Acute Suicidal ideation Acute
--- NOTE | 2016-11-10 14:42 | SOAPPROG ---
SOAP Progress Note Assessment/Plan: Assessment: * Subjective dysuria. Urinalysis was completely within normal limits and his report of never having sex is credible then there is no infectious etiology to his dysuria. Please obtain recent records from [facility] for further review and determine if there is any further evaluation indicated or particular treatment that would benefit him. 11/10/16 14:41 Subjective: Asked to see patient regarding pain with urination. He reports burning last night but did not have it today. He denies fevers or chills he denies joint pain he denies risk for STDs and reports that he has never had sex. He reports he had a recent evaluation at [facility] possibly including cystoscopy and says that they reported that his prostate is okay. Objective: Vital Signs Temp Pulse Resp BP Pulse Ox 36.2 C 105 H 18 157/69 H 94 11/10/16 06:00 11/10/16 08:15 11/10/16 08:15 11/10/16 08:15 11/10/16 08:15 Physical Exam - Physical Exam General Appearance: WD/WN, alert, no apparent distress ICD10 Worksheet Patient Problems: Problems Problem Status Onset BPH (benign prostatic hyperplasia) Acute Bipolar II, mixed, severe with psychotic behavior Acute Constipation Acute Esophagitis Acute Insomnia Acute Mild neurocognitive disorder Acute Pacemaker Acute Suicidal ideation Acute
[2016-11-10] MEDS ORDERED: clonazePAM 0.5 MG TAB PO ONE (15:15)
[2016-11-10] MEDS: MELATONIN 3 MG TAB PO PRN (20:32)
[2016-11-11 07:46] LABS: HEMATOCRIT 42.9 % (40.0-51.0); HEMOGLOBIN 14.1 g/dL (13.7-17.5); MEAN CELL HEMOGLOBIN 30.7 pg (27.9-34.1); MEAN CELL HEMOGLOBIN CONCENTR. 32.9 g/dL (32.4-36.7); MEAN CELL VOLUME 93.3 fL (81.5-99.8); RED BLOOD CELL COUNT 4.6 10^6/uL (4.40-6.38); RED CELL DISTRIBUTION WIDTH 14.6 % (11.5-15.2)
[2016-11-11 07:56] LABS: ALANINE AMINOTRANSFERASE 28 IU/L (21-72); ALBUMIN 2.9 g/dL (3.5-5.0); ALKALINE PHOSPHATASE 44 IU/L (38-126); ANION GAP 9 mEq/L (8-16); ASPARTATE AMINOTRANSFERASE 18 IU/L (17-59); BILIRUBIN,TOTAL 0.5 mg/dL (0.1-1.4); CALCIUM 8.9 mg/dL (8.5-10.4); CARBON DIOXIDE 21 mEq/l (22-31); CHLORIDE 111 mEq/L (97-110); CREATININE 0.9 mg/dL (0.7-1.3); GLOMERULAR FILTRATION RATE > 60; GLUCOSE 81 mg/dL (70-100); POTASSIUM 4.3 mEq/L (3.5-5.2); SODIUM 141 mEq/L (134-144)
--- NOTE | 2016-11-11 08:53 | SOAPPROG ---
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 Reviewed Head CT 10/2015 from [facility]: atrophy, small vessel disease Reviewed discharge summaries from [facility] geriatric psychiatry unit 11/2015, 2016, diagnosed bipolar depression with psychotic features and anxiety, last discharge on Latuda 60mg, Lamictal 100mg BID, Wellbutrin, Klonopin 1mg QHS, Trazodone 100mg QHS, Flomax, Senna, Protonix. Patient reports benefit from Clonazepam 0.5mg for panic/sleep but feeling excessively sedated. Patient appears less distressed today than previous. Plan: Continue Gabapentin 100mg TID for akathisia, anxiety Discontinue PRN Gabapentin Change/Reduce Clonazepam 0.25mg PRN panic/anxiety or insomnia Restart Trazodone 50mg PO QHS for insomnia Continue Latuda 20mg PO QAM for bipolar depression, started 11/10, monitor for side effects, no current cogwheeling or tremor Monitor PO food intake. Weights three times a week. Start Ensure TID with meals Fall precautions, walker per PT Monitor mood/anxiety and ability to attend groups and interact appropriately, somatic/nihilistic preoccupation Plan discharge back to [facility] if anxiety/mood/appetite symptoms improve 11/11/16 08:58 Subjective: "A little better, still nervous." Patient reports yesterday having a panic attack, fear he was dying or something terrible was going to happen. Reports feeling 'freaked out, scared, not sure what to do.' Reports benefit from Klonopin for panic and insomnia. Reports feeling drowsy after taking this medication. Later reports chronic sedative use for panic attacks for many years in the past. Reports past benefit from Trazodone for sleep without side effects. Reports poor appetite, low mood, not sure if he wants to live or but denies plan to hurt himself. Denies agitation or violent thoughts. Denies AH or paranoia. Low appetite 'but I'm trying to eat more.' Objective: Vital Signs Temp Pulse Resp BP Pulse Ox 36.4 C 61 14 118/56 L 94 11/11/16 06:00 11/11/16 06:00 11/11/16 06:00 11/11/16 06:00 11/11/16 06:00 Laboratory Results 11/11/16 06:15 11/11/16 06:15 Alert WM. TD movements of lower face. Cooperative and pleasant. Speech soft, few words. Mood 'a little better, still nervous' Affect restricted, brief smiling, sad/anxious at times. Thoughts briefly organized with a poverty of content. Denies SI or HI but reports feeling hopeless, unsure if he wants to live or . Denies AH or paranoia. Somatic preoccupation. Memory intact to major events with poor detail. Limited insight. Judgment fair. Staff report patient slept overnight with HS PRN klonopin 0.5mg, also received a dose in yesterday afternoon for panic attack. Eating 50% of meals. - Time Spent With Patient Time Spent With Patient: 20min - Pending Discharge Pending Discharge Within 24 Hours: No Pending Discharge Within 48 Hours: No ICD10 Worksheet Patient Problems: Problems Problem Status Onset Esophagitis Acute BPH (benign prostatic hyperplasia) Acute Pacemaker Acute Mild neurocognitive disorder Acute Constipation Acute Insomnia Acute Bipolar II, mixed, severe with psychotic behavior Acute Suicidal ideation Acute
[2016-11-11] MEDS: FERROUS SULFATE 325 MG TAB PO SCH (09:01)
[2016-11-11] MEDS: GABAPENTIN 100 MG CAP PO SCH ×3 (09:01→19:15)
[2016-11-11] MEDS: PANTOPRAZOLE SODIUM 40 MG TAB PO SCH (09:01)
[2016-11-11] MEDS: LURASIDONE HCL 20 MG TAB PO SCH (09:01)
[2016-11-11] MEDS: TAMSULOSIN HCL 0.4 MG CAP PO SCH (09:01)
[2016-11-11] MEDS: PSYLLIUM METAMUCIL 1 PKT PO SCH (09:01)
[2016-11-11] MEDS: clonazePAM 0.5 MG TAB PO PRN ×2 (10:04→14:19)
[2016-11-11] MEDS: traZODone 50 MG TAB PO SCH ×2 (10:27→19:16)
[2016-11-11] MEDS: MELATONIN 3 MG TAB PO PRN (19:15)
[2016-11-12] MEDS: clonazePAM 0.5 MG TAB PO PRN ×3 (02:33→16:22)
[2016-11-12] MEDS: LURASIDONE HCL 20 MG TAB PO SCH (07:37)
[2016-11-12] MEDS: PSYLLIUM METAMUCIL 1 PKT PO SCH (08:17)
[2016-11-12] MEDS: TAMSULOSIN HCL 0.4 MG CAP PO SCH (08:17)
[2016-11-12] MEDS: FERROUS SULFATE 325 MG TAB PO SCH (08:17)
[2016-11-12] MEDS: PANTOPRAZOLE SODIUM 40 MG TAB PO SCH (08:17)
[2016-11-12] MEDS: GABAPENTIN 100 MG CAP PO SCH ×3 (08:17→20:27)
[2016-11-12] MEDS ORDERED: traZODone 50 MG TAB PO PRN (09:30)
--- NOTE | 2016-11-12 10:25 | SOAPPROG ---
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 Patient reports today nihilistic thoughts that he should but denies suicidal plan. Reviewed Head CT 10/2015 from [facility]: atrophy, small vessel disease Reviewed discharge summaries from [facility] geriatric psychiatry unit 11/2015, 2016, diagnosed bipolar depression with psychotic features and anxiety, last discharge on Latuda 60mg, Lamictal 100mg BID, Wellbutrin, Klonopin 1mg QHS, Trazodone 100mg QHS, Flomax, Senna, Protonix. Patient reports benefit from Clonazepam 0.5mg for panic/sleep but feeling excessively sedated. Patient appears less distressed today than previous. Plan: Continue Gabapentin 100mg TID for akathisia, anxiety Continue Clonazepam 0.25mg PRN panic/anxiety or insomnia Schedule Clonazepam 0.25mg PO QHS for insomnia Change Trazodone 50mg PO PRN QHS for insomnia Continue Latuda 20mg PO QAM for bipolar depression, started 11/10, monitor for side effects, monitor for EPS, consider increasing if not improving Monitor PO food intake. Start Ensure TID with meals Change Metamucil to Mon/Wed/Fri Change Tamsulosin QHS for BPH starting tomorrow Fall precautions, walker per PT Monitor mood/anxiety and ability to attend groups and interact appropriately, somatic/nihilistic preoccupation, sleep Plan discharge back to [facility] if anxiety/mood/appetite symptoms improve 11/12/16 10:21 11/12/16 10:27 Subjective: "I don't feel any better, real shaky, feel sick, sometime I don't want to live" Patient is a poor historian but reports panic attacks yesterday and this AM, difficulty falling asleep, and disrupted/reduced sleep. Reports depressed mood , hopelessness, and thoughts of being . Denies plan to hurt self however. Reports worry about the future, fear of never being well and being 'kicked out' of the hospital. Denies constipation or difficulty urinating. Denies chest pain or SOB. Staff report patient has loose stools and low food intake. Objective: Vital Signs Temp Pulse Resp BP Pulse Ox 36.8 C 75 14 126/59 H 93 11/12/16 06:00 11/12/16 06:00 11/12/16 06:00 11/12/16 06:00 11/12/16 06:00 Laboratory Results 11/11/16 06:15 11/11/16 06:15 Alert WM, walks slowly with walker. Some AIM of lower face. Speech soft, few words. Mild increased tone but no cogwheeling. Mood 'not good' affect dysphoric. Reports thoughts of being but denies suicidal plan. Denies HI or AH or paranoia. Somatic preoccupation. Limited insight. Reduced memory. - Time Spent With Patient Time Spent With Patient: 20 - Pending Discharge Pending Discharge Within 24 Hours: No Pending Discharge Within 48 Hours: No ICD10 Worksheet Patient Problems: Problems Problem Status Onset BPH (benign prostatic hyperplasia) Acute Bipolar II, mixed, severe with psychotic behavior Acute Constipation Acute Esophagitis Acute Insomnia Acute Mild neurocognitive disorder Acute Pacemaker Acute Panic disorder Acute Suicidal ideation Acute
[2016-11-12] MEDS ORDERED: ONDANSETRON DISINTEGRATING 4 MG TAB PO PRN (10:47)
[2016-11-12] MEDS ORDERED: TEARS/DEXTRAN 70/HYPROMELLOSE 15 ML OPHT.BTL EACHEYE PRN (13:18)
[2016-11-12] MEDS: clonazePAM 0.5 MG TAB PO SCH (20:27)
[2016-11-12] MEDS: MELATONIN 3 MG TAB PO PRN (20:28)
[2016-11-13] MEDS: PANTOPRAZOLE SODIUM 40 MG TAB PO SCH (08:21)
[2016-11-13] MEDS: LURASIDONE HCL 20 MG TAB PO SCH (08:21)
[2016-11-13] MEDS: FERROUS SULFATE 325 MG TAB PO SCH (08:21)
[2016-11-13] MEDS: GABAPENTIN 100 MG CAP PO SCH ×3 (08:21→21:30)
[2016-11-13] MEDS: clonazePAM 0.5 MG TAB PO PRN ×2 (12:44→21:46)
--- NOTE | 2016-11-13 17:56 | SOAPPROG ---
SOAP Progress Note Assessment/Plan: Assessment: Per Dr. Slade's note on 11/12/16: Bipolar Disorder type II, depressed with psychotic features Panic Disorder - past chronic sedative use Insomnia Akathisia versus Restless Leg Syndrome Mild Neurocognitive Disorder -probable early Alzheimer's Disease (apathy, short term memory impairment) Tardive Dyskinesia BPH Constipation History of GI bleed, esophagitis History of lithium toxicity; past trials of Seroquel, Abilify, Lamictal, Wellbutrin, Lexapro, Lamictal, Trazodone, Klonopin per records; patient didn't tolerate Olanzapine, Fluoxetine, or Remeron during this hospitalization Plan: Continue Gabapentin 100mg TID for akathisia, anxiety Continue Clonazepam 0.25mg PRN panic/anxiety or insomnia Schedule Clonazepam 0.25mg PO QHS for insomnia Change Trazodone 50mg PO PRN QHS for insomnia Continue Latuda 20mg PO QAM for bipolar depression, started 11/10, monitor for side effects, monitor for EPS, consider increasing if not improving Monitor PO food intake. Start Ensure TID with meals Change Metamucil to Mon/Tue/Fri Change Tamsulosin QHS for BPH starting tomorrow Fall precautions, walker per PT Monitor mood/anxiety and ability to attend groups and interact appropriately, somatic/nihilistic preoccupation, sleep Plan discharge back to [facility] if anxiety/mood/appetite symptoms improve 11/13/16 17:52 1. Patient continue to c/o somatic/nihilistic preoccupations, has little hope that he will ever feel better. Contrary to patient's perception that he hasn't slept well and is "too anxious" to relax, staff report he slept 10-1/2 uninterrupted hours last night. 2. [facility] - patient reports he doesn't feel "any different" with new meds. Says they don't work any better than Olanzapine/fluoxetine combo. However, staff report patient has attended group and participated without any complaints. He does report feeling better after PRN dose of Clonazepam. 3. Per Dr. Slade's notes, patient was [facility] on Latuda 60mg, Wellbutrin, Klonopin and Lamictal. He would likely benefit from increased dose of Latuda and possible addition of mood stabilizer, though adding an antidepressant given his prior dx of Bipolar with psychotic features raises concerns. However, given patient's persistent focus on somatic complaints and tendency to view all physical sxs as caused by his medications, it might be prudent to add meds and titrate doses slowly. Patient is also likely to feel better emotionally as his physical condition improves. This may take some time given his poor PO intake and apparent muscle atrophy. He seems like a patient that will benefit from ongoing med monitoring and adjustment as outpatient while continuing to receive nursing care and physical therapy at [facility]. Subjective: Met with patient, reviewed chart and discussed with staff. Patient complains that his head is "burning on the inside." He says there is "no way" he can relax , and that lying down, which suggested "isn't going to help." When MD points out that staff report he seemed in good spirits this AM while he was participating in group, he agreed he felt "pretty good" this morning, but that things "got bad" after lunch. Patient says he feels better when he gets a good night's rest. MD pointed out that staff reported he got 10-1/2 hrs of sleep last night. Patient remains focused on negative issues, stating he doesn't think he's ever going to feel better. He denies any SI/HI. Objective: Vital Signs Temp Pulse Resp BP Pulse Ox 36.6 C 79 22 H 127/64 H 93 11/13/16 12:37 11/13/16 12:37 11/13/16 12:37 11/13/16 12:37 11/13/16 12:37 Laboratory Results 11/11/16 06:15 11/11/16 06:15 MSE: Dressed in trousers, LS shirt, using walker to ambulate. Sitting and then lying in bed. Affect: Depressed and anxious Mood: "Terrible" TP: Perseverative on somatic issues, tangential TC: Denies AH/VH, no evidence of psychosis, denies SI/HI, but not much will to live Insight/Judgment: Poor - Time Spent With Patient Time Spent With Patient: 20" - Pending Discharge Pending Discharge Within 24 Hours: No Pending Discharge Within 48 Hours: No Pending Discharge Date: 11/16/16 (Possible transfer back to [facility] ) ICD10 Worksheet Patient Problems: Problems Problem Status Onset BPH (benign prostatic hyperplasia) Acute Bipolar II, mixed, severe with psychotic behavior Acute Constipation Acute Esophagitis Acute Insomnia Acute Mild neurocognitive disorder Acute Pacemaker Acute Panic disorder Acute Suicidal ideation Acute
[2016-11-13] MEDS: clonazePAM 0.5 MG TAB PO SCH (20:18)
[2016-11-13] MEDS: TAMSULOSIN HCL 0.4 MG CAP PO SCH (20:19)
[2016-11-13] MEDS: MELATONIN 3 MG TAB PO PRN (20:19)
[2016-11-14] MEDS: FERROUS SULFATE 325 MG TAB PO SCH (08:08)
[2016-11-14] MEDS: LURASIDONE HCL 20 MG TAB PO SCH (08:08)
[2016-11-14] MEDS: GABAPENTIN 100 MG CAP PO SCH ×3 (08:08→20:40)
[2016-11-14] MEDS: PANTOPRAZOLE SODIUM 40 MG TAB PO SCH (08:08)
[2016-11-14] MEDS ORDERED: PSYLLIUM METAMUCIL 1 PKT PO SCH (09:00)
[2016-11-14] MEDS: PSYLLIUM METAMUCIL 1 PKT PO SCH (10:56)
[2016-11-14] MEDS: clonazePAM 0.5 MG TAB PO PRN (13:49)
--- NOTE | 2016-11-14 15:24 | SOAPPROG ---
SOAP Progress Note Assessment/Plan: Assessment: Per Dr. Slade's note on 11/12/16: Bipolar Disorder type II, depressed with psychotic features Panic Disorder - past chronic sedative use Insomnia Akathisia versus Restless Leg Syndrome Mild Neurocognitive Disorder -probable early Alzheimer's Disease (apathy, short term memory impairment) Tardive Dyskinesia BPH Constipation History of GI bleed, esophagitis History of lithium toxicity; past trials of Seroquel, Abilify, Lamictal, Wellbutrin, Lexapro, Lamictal, Trazodone, Klonopin per records; patient didn't tolerate Olanzapine, Fluoxetine, or Remeron during this hospitalization Plan: Continue Gabapentin 100mg TID for akathisia, anxiety Continue Clonazepam 0.25mg PRN panic/anxiety or insomnia Schedule Clonazepam 0.25mg PO QHS for insomnia Change Trazodone 50mg PO PRN QHS for insomnia Continue Latuda 20mg PO QAM for bipolar depression, started 11/10, monitor for side effects, monitor for EPS, consider increasing if not improving Monitor PO food intake. Start Ensure TID with meals Change Metamucil to Mon/Tue/Fri Change Tamsulosin QHS for BPH starting tomorrow Fall precautions, walker per PT Monitor mood/anxiety and ability to attend groups and interact appropriately, somatic/nihilistic preoccupation, sleep Plan discharge back to [facility] if anxiety/mood/appetite symptoms improve 11/13/16 17:52 1. Patient continue to c/o somatic/nihilistic preoccupations, has little hope that he will ever feel better. Contrary to patient's perception that he hasn't slept well and is "too anxious" to relax, staff report he slept 10-1/2 uninterrupted hours last night. 2. [facility] - patient reports he doesn't feel "any different" with new meds. Says they don't work any better than Olanzapine/fluoxetine combo. However, staff report patient has attended group and participated without any complaints. He does report feeling better after PRN dose of Clonazepam. 3. Per Dr. Slade's notes, patient was discharged from [facility] on Latuda 60mg, Wellbutrin, Klonopin and Lamictal. He would likely benefit from increased dose of Latuda and possible addition of mood stabilizer, though adding an antidepressant given his prior dx of Bipolar with psychotic features raises concerns. However, given patient's persistent focus on somatic complaints and tendency to view all physical sxs as caused by his medications, it might be prudent to add meds and titrate doses slowly. Patient is also likely to feel better emotionally as his physical condition improves. This may take some time given his poor PO intake and apparent muscle atrophy. He seems like a patient that will benefit from ongoing med monitoring and adjustment as outpatient while continuing to receive nursing care and physical therapy at [facility]. 11/14/16 15:20 1. Increase Klonopin 0.25mg to QID dosing to help regulate patient's anxiety. 2. Encouraged patient to make a list of coping skills to manage his anxiety. Patient listed many things that helped including: art, music, walking, watching TV, deep breathing, lying down, thinking about "relaxing places." 3. Patient attending groups and "enjoys" them. Subjective: MD had long conversation with patient about his somatic complaints. Patient recognizes these are linked to his ongoing feelings of anxiety. He admits to feeling "anxious and scared" about "leaving here." He is worried that he won't like it at [facility] and that he will continue to feel anxious and sad. He c/ o feeling "weak" and having "hot flashes." MD asks what are times when he feels good. He says he feels "a little better" when he is participating in group and when there are other activities going on around him, such as when he's watching TV with peers and listening to music in art therapy group. He says when he is "busy" with his hands or engaged in an activity, he isn't "worrying or thinking about my problems." He says when his is preoccupied, he doesn't feel dizzy, lightheaded, flushed or restless. MD tried to explain these are most likely sxs of anxiety related to worries he has about what things will be like in the future. They do not seem to be SE's from meds as patient has claimed for the past week. While it's true that some of his meds can cause sedation and dizziness, most of the sxs he describes are likely related to anxiety. When he uses some relaxation techniques, like deep breathing and distraction, he almost immediately feels better. Zakia GUAMAN, tried deep breathing exercises with him yesterday with positive results. Patient denies any AH/VH, no SI/HI. Objective: Vital Signs Temp Pulse Resp BP Pulse Ox 36.5 C 69 17 116/57 L 93 11/14/16 06:00 11/14/16 06:00 11/14/16 06:00 11/14/16 06:00 11/14/16 06:00 Laboratory Results 11/11/16 06:15 11/11/16 06:15 MSE: Affect: Flat Mood: "Anxious and scared" TP: Tangential, perseverative about somatic issues TC: Denies any AH/VH, no paranoia, no SI/HI Insight/ Judgment: Poor - Time Spent With Patient Time Spent With Patient: 25" - Pending Discharge Pending Discharge Within 24 Hours: No Pending Discharge Within 48 Hours: Yes Pending Discharge Date: 11/16/16 (Possible d/c back to [facility] on Tue) Pending Discharge Time: 11:00 ICD10 Worksheet Patient Problems: Problems Problem Status Onset BPH (benign prostatic hyperplasia) Acute Bipolar II, mixed, severe with psychotic behavior Acute Constipation Acute Esophagitis Acute Insomnia Acute Mild neurocognitive disorder Acute Pacemaker Acute Panic disorder Acute Suicidal ideation Acute
[2016-11-14] MEDS ORDERED: clonazePAM 0.5 MG TAB PO PRN (15:34)
[2016-11-14] MEDS: clonazePAM 0.5 MG TAB PO SCH ×2 (16:09→23:36)
[2016-11-14] MEDS: TAMSULOSIN HCL 0.4 MG CAP PO SCH (20:40)
[2016-11-14] MEDS: MELATONIN 3 MG TAB PO PRN (20:40)
--- NOTE | 2016-11-15 09:11 | SOAPPROG ---
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 (apathy, short term memory impairment) Tardive Dyskinesia BPH Constipation History of GI bleed, esophagitis History of lithium toxicity; past trials of Seroquel, Abilify, Lamictal, Wellbutrin, Lexapro, Lamictal, Trazodone, Klonopin per records; patient didn't tolerate Olanzapine, Fluoxetine, or Remeron during this hospitalization Reviewed Head CT 10/2015 from [facility]: atrophy, small vessel disease Reviewed discharge summaries from [facility] geriatric psychiatry unit 11/2015, 2016, diagnosed bipolar depression with psychotic features and anxiety, last discharge on Latuda 60mg, Lamictal 100mg BID, Wellbutrin, Klonopin 1mg QHS, Trazodone 100mg QHS, Flomax, Senna, Protonix. Patient reports continued anxiety but is sleeping and eating well and denies SI. Plan: Continue Gabapentin 100mg TID for akathisia, anxiety Change Clonazepam to 0.25mg BID as well as 0.25mg PO QHS PRN insomnia Start Buspar 5mg BID for anxiety Continue Latuda 20mg PO QAM for bipolar depression, started 11/10 Fall precautions, walker per PT Plan discharge back to [facility] tomorrow if stable 11/15/16 09:11 Subjective: Patient reports feeling 'worried about going back to [facility] Reports continued panic attacks, brief fear of dying or 'something bad happening.' Denies thoughts of or suicide. Reports sleeping well last night and eating breakfast today. Denies agitation or irritability or racing thoughts. Reports feeling tired this AM. Reports wanting to live for daughter. Objective: Vital Signs Temp Pulse Resp BP Pulse Ox 36.5 C 65 12 99/56 L 92 11/15/16 06:00 11/15/16 06:00 11/15/16 06:00 11/15/16 06:00 11/15/16 06:00 Laboratory Results 11/11/16 06:15 11/11/16 06:15 Staff report over weekend patient slept well, was eating well, but complaining of anxiety. Over weekend patient complianed of panic attacks and was started on Klonopin 0.25mg TID scheduled. WM, disheveled, cooperative, appears tired. Speech RRR. Mood 'worried about going back to [facility].' Affect anxious at times. Thoughts organized with poverty of detail/content. Denies SI or HI. Denies AH or paranoia. Somatic preoccupation. Insight limited. Memory reduced. Appropriate judgment. - Time Spent With Patient Time Spent With Patient: 20 - Pending Discharge Pending Discharge Within 24 Hours: No Pending Discharge Within 48 Hours: Yes Pending Discharge Date: 11/16/16 Pending Discharge Time: 14:00 Physical Exam - Physical Exam General Appearance: alert, mild distress, anxiety Neuro/Psych: abnormal gait (walks slowly with walker. ), other (no cogwheeling) ICD10 Worksheet Patient Problems: Problems Problem Status Onset BPH (benign prostatic hyperplasia) Acute Bipolar II, mixed, severe with psychotic behavior Acute Constipation Acute Esophagitis Acute Insomnia Acute Mild neurocognitive disorder Acute Pacemaker Acute Panic disorder Acute Suicidal ideation Acute
[2016-11-15] MEDS: PANTOPRAZOLE SODIUM 40 MG TAB PO SCH (09:26)
[2016-11-15] MEDS: LURASIDONE HCL 20 MG TAB PO SCH (09:27)
[2016-11-15] MEDS: GABAPENTIN 100 MG CAP PO SCH ×3 (09:27→20:07)
[2016-11-15] MEDS: FERROUS SULFATE 325 MG TAB PO SCH (09:28)
[2016-11-15] MEDS: busPIRone 5 MG TAB PO SCH ×2 (10:56→20:06)
[2016-11-15] MEDS: clonazePAM 0.5 MG TAB PO SCH ×3 (11:04→18:24)
[2016-11-15] MEDS: TAMSULOSIN HCL 0.4 MG CAP PO SCH (20:07)
[2016-11-16 06:30] VITALS: RESP 14
[2016-11-16] MEDS: PANTOPRAZOLE SODIUM 40 MG TAB PO SCH (08:38)
[2016-11-16] MEDS: FERROUS SULFATE 325 MG TAB PO SCH (08:38)
[2016-11-16] MEDS: LURASIDONE HCL 20 MG TAB PO SCH (08:38)
[2016-11-16] MEDS: busPIRone 5 MG TAB PO SCH ×2 (08:38→19:31)
[2016-11-16] MEDS: PSYLLIUM METAMUCIL 1 PKT PO SCH (08:39)
[2016-11-16] MEDS: GABAPENTIN 100 MG CAP PO SCH ×3 (08:39→19:31)
[2016-11-16] MEDS: clonazePAM 0.5 MG TAB PO SCH ×2 (08:39→19:31)
[2016-11-16] MEDS: clonazePAM 0.5 MG TAB PO PRN (12:10)
--- NOTE | 2016-11-16 14:32 | SOAPPROG ---
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 History of GI bleed, esophagitis - takes protonix Patient reports continued anxiety but is sleeping and eating well and denies SI. Patient is cooperative with caregivers. Patient has not appeared anxious on unit during meals or groups but only appears anxious when talking to doctors or discussing discharge planning. Aricept contraindicated due to history of bradycardia. Plan: Continue Gabapentin 100mg TID for akathisia, anxiety Clonazepam to 0.25mg BID as well as 0.25mg PO Qday PRN panic attack Continue Buspar 5mg BID for anxiety Continue Latuda 20mg PO QAM for bipolar depression, started 11/10 Fall precautions, walker per PT Discharge to [facility] with P follow up 11/16/16 14:36 Subjective: "I'm alright, worried about [facility]" Patient reports poor sleep and poor appetite but staff report patient sleeping 9 -10 hours past 2 nights and eating 75% of meals. Reports he misses his daughter and is 'worried' about going to [facility]. Unable to explain specific worries about the future. Reports yesterday having a panic attack with fear that he could and feeling 'bad head all through my head.' Denies any self harm or intent to harm self during panic attack. Denies somatic complaints. Denies feeling hopeless or wanting to but reports he feels overwhelmed when not feeling well. Objective: Vital Signs Temp Pulse Resp BP Pulse Ox 36.4 C 70 14 131/60 H 94 11/16/16 06:00 11/16/16 06:00 11/16/16 06:00 11/16/16 06:00 11/16/16 06:00 Laboratory Results 11/11/16 06:15 11/11/16 06:15 Alert WM, ambulatory with walker, wearing glasses. Occasional AIM of lower face. No cogwheeling or rigidity. Speech RRR. Mood 'alright' 'worried about [facility].' Thoughts briefly organized with poverty of content. Denies SI or HI. Denies AH or paranoia. Reduced memory of past events. Limited insight. Appropriate judgment. Staff report patient slept 10 hours overnight, eating 75% meals. Patient has been attending groups, no dangerous behaviors or statements, cooperative with medications. - Time Spent With Patient Time Spent With Patient: 15 - Pending Discharge Pending Discharge Within 24 Hours: Yes Pending Discharge Date: 11/16/16 Pending Discharge Time: 15:00 ICD10 Worksheet Patient Problems: Problems Problem Status Onset BPH (benign prostatic hyperplasia) Acute Bipolar II, mixed, severe with psychotic behavior Acute Constipation Acute Esophagitis Acute Insomnia Acute Mild neurocognitive disorder Acute Pacemaker Acute Panic disorder Acute Suicidal ideation Acute
[2016-11-16] MEDS: TAMSULOSIN HCL 0.4 MG CAP PO SCH (19:31)
--- NOTE | 2016-11-17 03:41 | BDS ---
[f rep st] BEHAVIORAL HEALTH INTERIM SUMMARY DATE OF ADMISSION: 11/04/2016 INTERIM SUMMARY 11/16/2016 ADMISSION DIAGNOSES: Bipolar disorder, type II; depressed, severe; panic disorder; history of alcohol dependence; history of bradycardia; benign prostatic hyperplasia; constipation. IDENTIFICATION: This is a 71-year-old white male who was living at [facility]. The patient is a former transportation department head. His daughter lives out of state. The patient has a significant history of bipolar disorder. He also has a distant history of alcohol abuse as well as pacemaker placement for bradycardia, as well as recurrent constipation and benign prostatic hypertrophy. REASON FOR ADMISSION: The patient was admitted on a M1 mental health hold for suicidal ideation from his intermediate facility after the patient reported that he wanted to and wanted to get a magnet to deactivate his pacemaker or to attempt to remove his pacemaker from his body. INITIAL EXAM: When the patient was admitted, he was anxious. Reported having panic attacks as well as depressed mood. He reported a past history of hypomanic episodes and alcohol abuse but has been sober for 1 year. He did not have manic symptoms when he was admitted. He endorsed low appetite, weight loss , poor concentration, low energy, poor sleep, feeling guilty and hopeless as well as having suicidal thoughts HOSPITAL COURSE: The patient was admitted to the inpatient psychiatric unit on an M1 hold. The patient did sign in voluntarily. Patient received internal medicine evaluation for his medical problems. He was continued on his laxative medications as well as his antacid medication, as well as iron for a history of iron deficiency. The patient was admitted on Seroquel, Lamictal, and trazodone. These medications were discontinued because they were ineffective. Patient was initially tried on olanzapine 5 mg and then 2.5 mg as well as fluoxetine 20 mg for bipolar depression. The patient did not improve with this medication regimen. Continued to report feeling dysphoric, hopeless, having thoughts of and having severe anxiety. Of note, the patient appeared to have akathisia when he was admitted and during the first several days of his hospitalization. The patient had restless leg tapping and appeared to have difficulty sitting still. Due to the restlessness, the olanzapine dose was reduced. His fluoxetine was stopped. He was started on a low dose of Remeron 7.5 mg at bedtime to help with insomnia. The patient continued to report poor sleep, anxiety and poor appetite. The patient was eventually restarted on a different medication regimen after reviewing outside records. It appeared from the outside records that the patient had 2 previous hospitalizations at the geriatric psychiatric unit at [facility]. Both times he was diagnosed with bipolar disorder, depressive episode and anxiety. He was treated primarily with Latuda, Klonopin and Wellbutrin. Therefore, we discontinued his olanzapine and Remeron, which did not appear effective. He was restarted on clonazepam for panic attacks and sleep. He was restarted on Latuda at a low dose 20 mg. The patient tolerated the Latuda as well as the clonazepam. He had remission of his akathisia symptoms. He had improvement in his sleep and improvements in his appetite. He was monitored for his sleep hours as well as his eating habits on the unit. He went from having disrupted and reduced sleep to sleeping between 9 to 10 hours at night. He also in the 5 days prior to discharge was eating 75% of his meals. He also appeared to be gaining weight with his daily weights. Patient had improvement in his affect. He appeared less depressed, less dysphoric, had better eye contact, and had better participation in groups. Of note on the unit he generally appeared calm and appropriate, however, when he was approached by doctors to discuss his mental health and his medical conditions, he became extremely anxious and reported feeling overwhelmed. The patient did report having panic attacks where he felt impending doom, fear of something bad happening to him, and having racing thoughts. These improved during the course of his hospitalization. The patient did have mild cognitive impairment during his hospitalization. He scored 25/30 on the SLUMS test, which was in the mild cognitive impairment range. This was prior to starting on clonazepam. Of note , in the outside records, there was a head CT scan from October 2015 which showed moderate atrophy and small vessel disease. The patient did have apathy on the unit with low motivation for self care and he also appeared to have executive cognitive deficits as far as problem-solving and comprehending complex information. He also appeared to have short-term memory problems. I did discuss the patient's cognitive impairment over the phone with the patient' s daughter who lives out of state. I explained that the patient most likely had mild Alzheimer's disease that may progress in the future. The patient was also started on gabapentin 100 mg by mouth 3 times a day for akathisia . The patient tolerated this medication without side effects. The patient was seen by internal medicine physician, Dr. Wilder, on November 05. The patient had the following lab values: On November 11 he had a hemoglobin of 14.1, white blood cell count 5.1, platelet count 182; sodium 141, potassium 4.1, creatinine 0.9, glucose 81. His liver function tests were normal except for borderline low total protein of 5.0 and albumin of 2.9. He had a vitamin B12 level of 428 and the TSH was 0.9. On November 09, he had a urinalysis which was negative for infection. His admission urine tox screen was negative. His weight on November 17 was 73.1 kg. CONDITION 11/16/16: He is an alert white male in no acute distress, glasses, and a short sepulveda. He is ambulatory with a walker. He has mild abnormal involuntary movements of his lower face which are mild. He has a very trace extension tremor. His speech is regular rate and rhythm. His thoughts are organized but with a poverty of content and minimal information. His mood is "okay" but I am worried about going to [facility]. His affect is restricted. He denies any thoughts of hurting himself or others. He denies auditory hallucinations or paranoia. His memory is impaired with reduced information regarding recent events but intact to month, year, place. His insight appears to be limited. His judgment appears to be appropriate. CURRENT/DISCHARGE DIAGNOSES: 1. Bipolar disorder type II, depressed, severe. 2. Panic disorder. 3. History of esophagitis. 4. Benign prostatic hyperplasia. 5. Pacemaker. 6. 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 7. Constipation. 8. Insomnia, that is resolved. 9. Suicidal ideation, which is resolved. ALLERGIES: Penicillin. CURRENT/DISCHARGE MEDICATIONS: 1. BuSpar 5 mg by mouth twice a day. 2. Clonazepam 0.25 by mouth twice a day. 3. Clonazepam 0.25 by mouth daily p.r.n. for panic attacks. 4. Ferrous sulfate 325 mg p.o. daily. 5. Gabapentin 100 mg p.o. t.i.d. 6. Latuda 20 mg p.o. daily for bipolar depression. 7. Ondansetron 4 mg p.o. daily p.r.n. nausea. 8. Protonix 40 mg p.o. daily. 9. Metamucil 1 capsule p.o. every other day. 10. Tamsulosin 0.4 mg by mouth at bedtime. DISPOSITION: The patient will be returning to [facility]. FOLLOWUP: The patient has a followup with a [facility] psychiatrist. LEGAL STATUS: The patient was admitted on an M1 hold but then signed in to the hospital voluntarily and will be discharged voluntarily to his nursing facility. /[id number]/MODL MTDD
[2016-11-17] MEDS: clonazePAM 0.5 MG TAB PO PRN ×2 (07:52→15:07)
[2016-11-17] MEDS: clonazePAM 0.5 MG TAB PO SCH ×2 (09:23→20:38)
[2016-11-17] MEDS: busPIRone 5 MG TAB PO SCH ×2 (09:23→20:37)
[2016-11-17] MEDS: GABAPENTIN 100 MG CAP PO SCH ×3 (09:23→20:38)
[2016-11-17] MEDS: LURASIDONE HCL 20 MG TAB PO SCH (09:23)
[2016-11-17] MEDS: PANTOPRAZOLE SODIUM 40 MG TAB PO SCH (09:23)
[2016-11-17] MEDS: FERROUS SULFATE 325 MG TAB PO SCH (09:23)
[2016-11-17] MEDS: ACETAMINOPHEN 325 MG TAB PO PRN (09:24)
--- NOTE | 2016-11-17 09:28 | SOAPPROG ---
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 History of GI bleed, esophagitis - takes protonix Patient reports continued anxiety but is sleeping and eating well on the unit and denies SI. Patient is cooperative with caregivers. Aricept contraindicated due to history of bradycardia. Plan: Continue Gabapentin 100mg TID for akathisia, anxiety Clonazepam to 0.25mg BID as well as 0.25mg PO Qday PRN panic attack Continue Buspar 5mg BID for anxiety Continue Latuda 20mg PO QAM for bipolar depression, started 11/10 Fall precautions, walker per PT Discharge to [facility] when bed available and approved by [employer] medicaid PRN tylenol for right 1st toe pain, no current signs of infection 11/17/16 09:28 Subjective: "I'm alright, nervous about [facility]" Patient reports overall feeling 'alright' but is worried about going to [facility]. Denies specific past problems there or specific fears about going there. Reports having disrupted sleep and poor appetite but staff report patient slept overnight and is eating well. Reports toe pain. Denies any thoughts about or suicide. Reports when having a panic attack worrying that his head and neck are hot and something bad is about to happen. Agrees to return to [facility] when bed available. Objective: Vital Signs Temp Pulse Resp BP Pulse Ox 36.7 C 73 14 124/62 H 94 11/17/16 06:00 11/17/16 06:00 11/17/16 06:00 11/17/16 06:00 11/17/16 06:00 Laboratory Results 11/11/16 06:15 11/11/16 06:15 Alert WM Cooperative, glasses. Walks slowly with walker. Speech RRR few words. mood 'alright, nervous' affect restricted. Thoughts organized but poor detail. Denies SI or HI or AH or paranoia. Somatic preoccupation. Memory intact to major events with poor detail. Limited insight. Appropriate judgment. Staff reports patient slept overnight and ate 75% of meals Patient not discharged back to SNF due to [facility] Medicaid issues. - Time Spent With Patient Time Spent With Patient: 10 min - Pending Discharge Pending Discharge Within 24 Hours: No Pending Discharge Within 48 Hours: No ICD10 Worksheet Patient Problems: Problems Problem Status Onset BPH (benign prostatic hyperplasia) Acute Bipolar II, mixed, severe with psychotic behavior Acute Constipation Acute Esophagitis Acute Insomnia Acute Mild neurocognitive disorder Acute Pacemaker Acute Panic disorder Acute Suicidal ideation Acute
[2016-11-17] MEDS: MELATONIN 3 MG TAB PO SCH (20:37)
[2016-11-17] MEDS: TAMSULOSIN HCL 0.4 MG CAP PO SCH (20:38)
[2016-11-18] MEDS: GABAPENTIN 100 MG CAP PO SCH ×3 (08:46→20:56)
[2016-11-18] MEDS: PSYLLIUM METAMUCIL 1 PKT PO SCH (08:46)
[2016-11-18] MEDS: LURASIDONE HCL 20 MG TAB PO SCH ×2 (08:46→16:26)
[2016-11-18] MEDS: FERROUS SULFATE 325 MG TAB PO SCH (08:46)
[2016-11-18] MEDS: busPIRone 5 MG TAB PO SCH ×2 (08:46→20:56)
[2016-11-18] MEDS: PANTOPRAZOLE SODIUM 40 MG TAB PO SCH (08:46)
[2016-11-18] MEDS: clonazePAM 0.5 MG TAB PO SCH ×2 (08:47→20:56)
--- NOTE | 2016-11-18 09:18 | SOAPPROG ---
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 History of GI bleed, esophagitis - takes protonix Patient is sleeping and eating well on the unit and denies SI. Patient is cooperative with caregivers. Aricept contraindicated due to history of bradycardia. Episodic anxiety may be partially related to cardiac arrhythmia Plan: Continue Gabapentin 100mg TID for akathisia, anxiety Clonazepam to 0.25mg BID as well as 0.25mg PO Q8 hours PRN panic attack Continue Buspar 5mg BID for anxiety Continue Latuda 20mg PO QAM for bipolar depression, started 11/10 Fall precautions, walker per PT Discharge to [facility] when bed available and approved by nursing home medicaid 11/18/16 09:18 Subjective: "I want to get out of here" Patient reports feeling 'nervous and shaky,' unable to explain why, later reports he wants to go back to [facility] 'I don't like it here, people are loud.' Denies specific somatic complaints. Denies thoughts of or suicide. Unable to explain negative or fearful thoughts associated with panic attacks. Reports getting along with staff and residents at [facility] previously. Objective: Vital Signs Temp Pulse Resp BP Pulse Ox 36.4 C 70 14 114/57 L 94 11/18/16 06:00 11/18/16 06:00 11/18/16 06:00 11/18/16 06:00 11/18/16 06:00 Laboratory Results 11/11/16 06:15 11/11/16 06:15 Alert WM, mild AIM of lower face and occasional foot tapping. Walks slowly with walker, cooperative, calm, doesn't appear anxious. Speech RRR. Mood "i want to get out of here.' Affect restricted. Thoughts briefly organized with poverty of information. Denies SI or HI or AH or paranoia. Poor insight. Appropriate judgment. Memory: intact to month and year, intact clockdrawing but poor recall of recent events. Staff report patient slept overnight, ate 75% of meals, received one dose of PRN Clonazepam 0.25mg for panic yesterday with benefit. - Time Spent With Patient Time Spent With Patient: 15 - Pending Discharge Pending Discharge Within 24 Hours: No Pending Discharge Within 48 Hours: No ICD10 Worksheet Patient Problems: Problems Problem Status Onset BPH (benign prostatic hyperplasia) Acute Bipolar II, mixed, severe with psychotic behavior Acute Constipation Acute Esophagitis Acute Insomnia Acute Mild neurocognitive disorder Acute Pacemaker Acute Panic disorder Acute Suicidal ideation Acute
[2016-11-18] MEDS: clonazePAM 0.5 MG TAB PO PRN ×2 (11:41→18:13)
[2016-11-18] MEDS: ACETAMINOPHEN 325 MG TAB PO PRN (11:48)
[2016-11-18] MEDS: TAMSULOSIN HCL 0.4 MG CAP PO SCH (20:56)
[2016-11-18] MEDS: MELATONIN 3 MG TAB PO SCH (20:56)
[2016-11-18] MEDS ORDERED: LURASIDONE HCL 20 MG TAB PO SCH (21:00)
[2016-11-19 06:22] VITALS: BP 120/61; PULSE 76; TEMP 98.5; O2SAT 93
[2016-11-19] MEDS: clonazePAM 0.5 MG TAB PO PRN (06:45)
[2016-11-19] MEDS: busPIRone 5 MG TAB PO SCH (07:46)
[2016-11-19] MEDS: PANTOPRAZOLE SODIUM 40 MG TAB PO SCH (07:46)
[2016-11-19] MEDS: FERROUS SULFATE 325 MG TAB PO SCH (07:46)
[2016-11-19] MEDS: LURASIDONE HCL 20 MG TAB PO SCH (07:46)
[2016-11-19] MEDS: GABAPENTIN 100 MG CAP PO SCH (07:47)
[2016-11-19] MEDS: clonazePAM 0.5 MG TAB PO SCH (07:47)
--- NOTE | 2016-11-19 08:31 | SOAPPROG ---
SOAP Progress Note Assessment/Plan: Assessment: Bipolar Disorder type II, depressed Panic Disorder - past chronic sedative use Insomnia Akathisia versus Restless Leg Syndrome - resolved Mild Neurocognitive Disorder -probable early Alzheimer's Disease (apathy, short term memory impairment) Tardive Dyskinesia - mild BPH - takes tamsulosin Constipation - takes laxatives Pacemaker, history of bradycardia. History of GI bleed, esophagitis - takes protonix, iron Patient is cooperative with caregivers. Aricept contraindicated due to history of bradycardia. Episodic anxiety may be partially related to cardiac arrhythmia. Patient had panic attack yesterday after outside pass when brought back into unit with brief SI to harm self with a plastic knife. Patient denies SI this AM but reports feeling depressed. Reports past benefit from Seroquel and Wellbutrin. Patient reports disrupted sleep Plan: Continue Gabapentin 100mg TID for akathisia, anxiety Discontinue Buspar (ineffective) Discontinue Latuda (ineffective) Restart Seroquel 25mg PO QHS for bipolar depression, patient reports previous benefit Start Buproprion 75mg PO QAM for depression, patient reports previous benefit Continue Clonazepam to 0.25mg BID for panic attacks as well as 0.25mg PO Q8 hours PRN panic attack 15 minute safety checks Fall precautions, walker per PT Discharge to [facility] when bed available and approved by long term medicaid 11/19/16 08:28 Subjective: "I just felt really bad" Patient is a poor historian. Reports he had a panic attack when brought back into unit after outside pass, "I wanted freedom" and was briefly suicidal. Reports no longer feeling suicidal. Reports poor sleep and feeling depressed. Upon review of past medication trials reports he slept better and had better mood with Seroquel and felt better with Bupropion when discharged from [facility] previously. Unable to explain goals for treatment. Denies specific somatic complaints except for feeling tired. Staff report patient ate 50% of breakfast this AM. Objective: Vital Signs Temp Pulse Resp BP Pulse Ox 36.9 C 76 14 120/61 93 11/19/16 06:00 11/19/16 06:00 11/19/16 06:00 11/19/16 06:00 11/19/16 06:00 Laboratory Results 11/11/16 06:15 11/11/16 06:15 Alert WM. Disheveled. Glasses. Fair eye contact. Walks slowly with walker. Some AIM of lower face. Thoughts briefly organized with poverty of content. Denies SI this AM. Denies HI or AH. Poor memory of past events. Limited insight. Speech RRR soft voice, minimal speech. Staff report patient yesterday was taken on pass outside, upon return had panic attack and reported SI to harm self with a plastic knife. - Time Spent With Patient Time Spent With Patient: 15min - Pending Discharge Pending Discharge Within 24 Hours: No Pending Discharge Within 48 Hours: No ICD10 Worksheet Patient Problems: Problems Problem Status Onset BPH (benign prostatic hyperplasia) Acute Bipolar II, mixed, severe with psychotic behavior Acute Constipation Acute Esophagitis Acute Insomnia Acute Mild neurocognitive disorder Acute Pacemaker Acute Panic disorder Acute Suicidal ideation Acute
[2016-11-19] MEDS ORDERED: buPROPion 75 MG TAB PO SCH (09:00)
[2016-11-19] MEDS ORDERED: QUEtiapine FUMARATE 25 MG TAB PO SCH (21:00)
--- NOTE | 2016-11-19 22:49 | BDS ---
[f rep st] BEHAVIORAL HEALTH DISCHARGE SUMMARY ADMITTING DIAGNOSES: Bipolar disorder, depressed; panic disorder; and suicidal ideation. IDENTIFICATION: This is a 71-year-old white male, who was living at [facility] prior to admission. The patient's daughter lives out of state. 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 He has a history of past psychiatric hospitalizations at [facility] for bipolar depression and suicidal ideation and panic disorder in October 2015 and February of 2016. The patient also has a history of cognitive decline over the past year and a half according to his daughter, leading to TEN/SNF placement. He also has a past history of multiple psychiatric medication trials and has history of lithium toxicity. PAST MEDICAL HISTORY: The patient has a pacemaker due to history of bradycardia. He also has a history of esophagitis and an upper GI bleed. He also has a history of iron deficiency and benign prostatic hypertrophy as well as constipation. Patient has a listed allergy to Pencillin. REASON FOR ADMISSION: The patient was sent from [facility] to the hospital because he was reporting suicidal thoughts. He apparently was having panic attacks and having thoughts of trying to break his pacemaker or trying to deactivate his pacemaker with a magnet. INITIAL EXAM: When the patient was admitted, he was dysphoric, anxious, reported panic attacks. He was disheveled and unkept, walking slowly with limited eye contact, had some restlessness in his legs. His speech was slow. His mood was depressed. His affect was dysphoric. His thoughts were linear. He had reduced memory of recent events. He denied psychotic symptoms. He had impaired insight and judgment. HOSPITAL COURSE: There was some discrepancy regarding the patient's admission psychiatric medications. It appears that the patient had been taking Lamictal and Seroquel and trazodone as well as Ativan for psychiatric medication management. There was other paperwork that indicated the patient may have been on Abilify as well. The patient was intially started on a combination of olanzapine and fluoxetine for bipolar depression. Initially, the patient continued to have panic attacks. He had reduced and poor sleep. He also reported feeling depressed and hopeless and did not tolerate the olanzapine and the fluoxetine. It appeared to cause increased restlessness as well as some extrapyramidal symptoms. The olanzapine dose was initially 5 mg and that was reduced to 2.5 and then discontinued due to continued side effects. The fluoxetine was discontinued due to restlessness and lack of benefit. The patient was tried on a low dose of Remeron for sleep and for depression. The patient reported feeling sedated, tired, nauseous, and more anxious with this medication. The patient also did not tolerate trazodone. He felt it was unhelpful for his sleep. He was started on low dose Gabapentin for restlessness and akathisia. He was eventually started on clonazepam scheduled for panic attacks as well as p.r.n. clonazepam. The patient reported benefit from this medication. A trial of Buspar 5mg PO BID for anxiety was not helpful. The patient was tried on a low dose of Latuda for bipolar depression. This was not clearly beneficial, but the patient did appear less distressed on the unit. With the combination of Latuda and clonazepam, the patient had improved eating and sleeping and initially appeared improved. On November 16, there was a plan to discharge back to [facility] , however, they would not accept the patient back as they apparently did not have complete authorization from long-term Medicaid for his return. When patient was notified that he was not being discharged back to [facility], he appeared to decompensate significantly. He reported he was hopeless and reported increased anxiety and worsening sleep disturbance. The patient was taken on a pass to go outside to see how he did with a new environment. He did well on the pass but when he was returned to the unit he then had a panic attack and reported that he felt suicidal, because he did not want to be in a locked unit. The patient was briefly on suicide precautions for this. The patient reported that he felt the Latuda was not helping with his depression, so we restarted Seroquel and Wellbutrin. These were medications that were on a previous discharge summary from [facility]. Of note, during the hospitalization the patient did walk with a walker due to gait instability. He did appear to have cognitive impairment. He scored 25/30 on the SLUMS test which shows mild cognitive impairment. The patient also appeared to have problem-solving impairment and difficulty with abstract thinking, as well as short-term memory impairment regarding recent events and apathy symptoms. I did review a CT scan of his head from October 2015, which showed mild-to- moderate atrophy. The patient had blood tests to rule out hypothyroidism or vitamin B12 deficiency contributing to his cognitive impairment and a UA negative for UTI. The patient and his daughter over the phone were counseled about the possibility that the patient had Alzheimer disease, early stage, because he appears to have apathy with low motivation to shower, shave, and do activities on the unit combined with problem-solving impairment, and short-term memory impairment. In general, the use of benzodiazepines is contraindicated in patients with cognitive impairment. However, the patient appeared to have no quality of life without the clonazepam or benzodiazepine use due to recurrent panic attacks. Looking at the records from [facility], he was also diagnosed with panic disorder there is well and treated with Klonopin, so this medication was used on the unit but at a low dose. CONDITION ON DISCHARGE: Prior to discharge, the patient reported that he had somewhat continued depressed mood, but denied thoughts to hurt himself or any intent to harm himself. He denied violent thoughts or psychotic symptoms. He was agreeable to return to [facility]. He reports some continued anxiety about his physical health, but was reassured that he would have both primary care and psychiatry followup after discharge. He ambulates slowly with a walker and has mild abnormal involuntary movements of lower face. He has reduced short term memory. He has limited insight but appropriate judgment. Of note, there was concern that the patient appeared thin and may have had malnutrition as he had low protein levels. The patient was monitored to monitor his p.o. intake. The patient had improvement in his p.o. intake and was eating 75% of his meals consistently prior to discharge and did regain some weight after first losing weight during the first few days of the hospitalization. LABS: The patient had an EKG on November 05. It showed atrial-ventricular paced complexes consistent with a pacemaker with a heart rate of 72. The patient had a urinalysis to rule out a urinary tract infection. The urinalysis was negative. The patient's CBC was within normal limits. On November 11, 2016, he had a sodium 141, creatinine 0.9, glucose 81, total protein 5.0, albumin 2.9. TSH 0.9. B12 level 428. Urine drug screen was negative. DISCHARGE DIAGNOSES: 1. Bipolar disorder type 2, most recent episode depressed, severe. 2. Panic disorder 3. Mild Neurocognitive disorder, likely secondary to early Alzheimer disease. 4. Tardive Dyskinesia, mild, in lower face 5. Benign prostatic hypertrophy. 6. Constipation. 7. Pacemaker. 8. History of bradycardia. 9. History of upper gastrointestinal bleed and esophagitis. 10. History of iron-deficiency anemia. DISCHARGE MEDICATIONS: Clonazepam 0.25 mg p.o. b.i.d., Clonazepam 0.25mg PO [id number] p.r.n. anxiety, gabapentin 100 mg p.o. t.i.d., melatonin 3 mg p.o. q.h.s. p.r.n. insomnia, Protonix 40 mg p.o. q. day, ferrous sulfate 325 mg p.o. q. day, Metamucil 1 capsule p.o. every other day, tamsulosin 0.4 mg p.o. q.h.s. , Natural Balance Tears 2 drops in each eye daily p.r.n. for irritated eyes, ondansetron 4 mg p.o. q. day p.r.n. nausea and vomiting, bupropion 75 mg p.o. q. day, Seroquel 25 mg p.o. q.h.s. The patient is also a fall risk and so should walk with a walker. DISPOSITION: The patient will be returning to [facility], which the patient is agreeable to. FOLLOWUP: The patient will be seen by a primary care physician in his [facility] and will be seen by a psychiatrist from [facility]. LEGAL STATUS: The patient was admitted on an M1 hold but converted to voluntary status during the course of the hospitalization and will be discharged for voluntary treatment. /[id number]/MODL MTDD
== END 2016-11-19 13:55 | DRG 885 ==
LOC: EDUNIT# → BBEH 21:17
PROVIDERS: ADMIT Psychiatry & Neurology Behavioral Neurology & Neuropsychiatry; ATTEND Psychiatry & Neurology Behavioral Neurology & Neuropsychiatry
DX: F31.4 Bipolar disorder, current episode depressed, severe, without psychotic features (principal); F41.0 Panic disorder [episodic paroxysmal anxiety]; G30.9 Alzheimer's disease, unspecified; F02.80 Dementia in other diseases classified elsewhere, unspecified severity, without behavioral disturbance, psychotic disturbance, mood disturbance, and anxiety; G24.9 Dystonia, unspecified; N40.0 Benign prostatic hyperplasia without lower urinary tract symptoms; Z95.0 Presence of cardiac pacemaker; G47.00 Insomnia, unspecified
CPT/HCPCS: 80305; 82607-90; 97161-GP; G0480; G8978-GP-CI; G8979-GP-CI; G8980-GP-CI

== ENCOUNTER 2016-11-20 14:31 | Emergency (ER) | payer OTHER, MEDICAID ==
--- NOTE | 2016-11-20 14:44 | EDPHY ---
H & P Time Seen by Provider: 11/20/16 14:31 HPI/ROS: CHIEF COMPLAINT: Increasing depression HISTORY OF PRESENT ILLNESS: Recent hospitalization for depression and was discharged to [facility] but presents today with increasing depression, saying "please let me , "and injuring his right hand with a sharp object which allegedly was nail clippers. He tells me he also wants to "rip my pacemaker out of my chest. " REVIEW OF SYSTEMS: Eye: no change in vision ENT: no sore throat Cardiac: no chest pain or syncope Pulmonary: no cough or SOB Abdomen: no vomiting, diarrhea, abdominal pain Musculoskeletal: no back pain Skin: Abrasions and skin tears on the right hand and wrist Neuro: no headache Constitutional: no fever : no urinary symptoms A comprehensive 10 point review of systems is otherwise negative aside from elements mentioned in the history of present illness. PAST MEDICAL HISTORY: Includes pacemaker, BPH, bipolar disorder, anemia. Social history: [facility] resident General Appearance: Alert and conversant, cooperative. Eyes: No scleral icterus. ENT, Mouth: Normal mucous membranes. Respiratory: Normal respiratory effort, breath sounds equal, lungs are clear to auscultation. Cardiovascular: Regular rate and rhythm. Gastrointestinal: Abdomen is soft and non tender. Neurological: Alert and oriented x3. Normally conversant. Face symmetric, normal movement and sensation in all extremities. Skin: With skin tear and superficial abrasions on right wrist and hand. Nonsuturable and bleeding well controlled. Musculoskeletal: No peripheral edema and no joint swelling. Psychiatric: Crying, tearful, anxious, depressed Emergency Department course/MDM: Placed on a mental health hold by myself for depression. I think that the most appropriate thing is to hold him here until we have a complete Psychiatric Assessment done, and disposition can be based on the results of that evaluation. 1901: Mental health evaluation completed, recommendation of bilingual school psychologist and Dr. Higuera is to vacate the hold and return back home. Their assessment is depression but not acutely suicidal now. Patient agrees to safety plan with bilingual school psychologist. Diagnosis per psychiatric bilingual school psychologist is dementia and anxiety. Patient does not appear to have an acute medical or surgical emergent condition. Patient does not appear to have a psychiatric condition that requires inpatient hospitalization or 72 hour hold at this time. 1936: Discussed with Rodolfo MICHELE peoplesoft hcm consultant for the patient's facility who agrees he should be discharged and she will facilitate that disposition with the facility. 2207: Discussed with Rosalie Kaur NP for [employer]. Smoking Status: Never smoked Constitutional: Initial Vital Signs Temperature (C) 36.7 C 11/20/16 15:02 Heart Rate 86 11/20/16 15:02 Respiratory Rate 14 11/20/16 15:02 Blood Pressure 113/70 11/20/16 15:02 O2 Sat (%) 94 11/20/16 15:02 O2 Delivery Mode Room Air Allergies/Adverse Reactions: Penicillins Allergy (Verified 11/20/16 15:12) Home Medications: Medication Instructions Recorded Ferrous Sulfate [Ferrous Sulf 325 325 mg PO DAILY 11/09/16 MG (*)] Ferrous Sulfate [Ferrous Sulf 325 325 mg PO DAILY tab 11/16/16 MG (*)] Gabapentin [Neurontin 100 MG (*)] 100 mg PO TID cap 11/16/16 Melatonin [Melatonin 3 MG (*)] 3 - 6 mg PO HS PRN tab 11/16/16 Ondansetron Odt [Zofran Odt 4 mg 4 mg PO DAILY PRN tab 11/16/16 (*)] Pantoprazole Sodium [Protonix 40mg 40 mg PO DAILY #0 tab 11/16/16 (*)] Psyllium Seed [Metamucil (*)] 1 each PO Q2D pkt 11/16/16 Tamsulosin HCl [Flomax 0.4 MG (*)] 0.4 mg PO HS cap 11/16/16 Tears/Dextran 70/Hypromellose 2 drop EACHEYE Q6 PRN opht.btl 11/16/16 [Natural Balance Tears (*)] clonazePAM [Klonopin (*)] 0.25 mg PO BID #60 tab 11/16/16 clonazePAM [Klonopin (*)] 0.25 mg PO DAILY PRN #0 tab 11/16/16 Melatonin [Melatonin 3 MG (*)] 3 mg PO HS tab 11/19/16 QUEtiapine FUMARATE [Seroquel 25 25 mg PO HS tab 11/19/16 mg (*)] buPROPion [Wellbutrin 75mg (*)] 75 mg PO DAILY #0 tab 11/19/16 clonazePAM [Klonopin (*)] 0.25 mg PO Q8 PRN tab 11/19/16 Medical Decision Making Differential Diagnosis: Differential diagnosis considered for depression including functional and major depression, situational depression, medication side effect, drugs and alcohol abuse. - Data Points Laboratory Results: Laboratory Results 11/20/16 14:53 11/20/16 14:53 11/20/16 11/20/16 11/20/16 14:53 14:53 14:42 WBC 6.69 10^3/uL 10^3/uL (3.80-9.50) RBC 5.63 10^6/uL 10^6/uL (4.40-6.38) Hgb 17.6 g/dL H g/dL (13.7-17.5) Hct 51.4 % H % (40.0-51.0) MCV 91.3 fL fL (81.5-99.8) MCH 31.3 pg pg (27.9-34.1) MCHC 34.2 g/dL g/dL (32.4-36.7) RDW 15.0 % % (11.5-15.2) Plt Count 249 10^3/uL 10^3/uL (150-400) MPV 8.3 fL L fL (8.7-11.7) Neut % (Auto) 66.7 % % (39.3-74.2) Lymph % (Auto) 19.0 % % (15.0-45.0) [place] % (Auto) 10.9 % % (4.5-13.0) Eos % (Auto) 2.7 % % (0.6-7.6) Baso % (Auto) 0.6 % % (0.3-1.7) Nucleat RBC Rel Count 0.0 % % (0.0-0.2) Absolute Neuts (auto) 4.46 10^3/uL 10^3/uL (1.70-6.50) Absolute Lymphs (auto) 1.27 10^3/uL 10^3/uL (1.00-3.00) Absolute Monos (auto) 0.73 10^3/uL 10^3/uL (0.30-0.80) Absolute Eos (auto) 0.18 10^3/uL 10^3/uL (0.03-0.40) Absolute Basos (auto) 0.04 10^3/uL 10^3/uL (0.02-0.10) Absolute Nucleated RBC 0.00 10^3/uL 10^3/uL (0-0.01) Immature Gran % 0.1 % % (0.0-1.1) Immature Gran # 0.01 10^3/uL 10^3/uL (0.00-0.10) Sodium 138 mEq/L mEq/L (134-144) Potassium 4.2 mEq/L mEq/L (3.5-5.2) Chloride 107 mEq/L mEq/L (97-110) Carbon Dioxide 20 mEq/l L mEq/l (22-31) Anion Gap 11 mEq/L mEq/L (8-16) BUN 16 mg/dL mg/dL (7-23) Creatinine 1.0 mg/dL mg/dL (0.7-1.3) Estimated GFR > 60 Glucose 84 mg/dL mg/dL (70-100) Calcium 10.0 mg/dL mg/dL (8.5-10.4) Salicylates < 1.0 mg/dL L mg/dL (2.0-20.0) Urine Opiates Screen NEGATIVE (NEGATIVE) Acetaminophen < 10 mcg/mL L mcg/mL (10-30) Urine Barbiturates NEGATIVE (NEGATIVE) Ur Phencyclidine Scrn NEGATIVE (NEGATIVE) Ur Amphetamine Screen NEGATIVE (NEGATIVE) U Benzodiazepines Scrn NEGATIVE (NEGATIVE) Urine Cocaine Screen NEGATIVE (NEGATIVE) U Marijuana (THC) Screen NEGATIVE (NEGATIVE) Ethyl Alcohol < 10 mg/dL mg/dL (0-10) Departure - Departure Disposition: Home, Routine, Self-Care Clinical Impression: Severe major depression Hand abrasion Qualifiers: Encounter type: initial encounter Laterality: right Qualified Code(s): S60.511A - Abrasion of right hand, initial encounter Condition: Good Instructions: Depression (ED), Acute Wounds (ED) Referrals: Shaina Donald MD [Medical Doctor] - As per Instructions
[2016-11-20 15:03] LABS: % IMMATURE GRANULYOCYTES 0.1 % (0.0-1.1); ABSOLUTE IMMATURE GRANULOCYTES 0.01 10^3/uL (0.00-0.10); ADD DIFF? NO; ADD MORPH? NO; ADD SCAN? NO; ATYPICAL LYMPHOCYTE FLAG 0 (0-99); FRAGMENT RBC FLAG 0 (0-99); HEMATOCRIT 51.4 % (40.0-51.0); HEMOGLOBIN 17.6 g/dL (13.7-17.5); LEFT SHIFT FLG 0 (0-99); LIPEMIA HEMOLYSIS FLAG 90 (0-99); MEAN CELL HEMOGLOBIN 31.3 pg (27.9-34.1); MEAN CELL HEMOGLOBIN CONCENTR. 34.2 g/dL (32.4-36.7); MEAN CELL VOLUME 91.3 fL (81.5-99.8); MEAN PLATELET VOLUME 8.3 fL (8.7-11.7); PLATELET CLUMPS FLAG 0 (0-99); PLATELET COUNT 249 10^3/uL (150-400); RED BLOOD CELL COUNT 5.63 10^6/uL (4.40-6.38)
[2016-11-20 15:07] VITALS: O2SAT 94
[2016-11-20 15:18] LABS: ANION GAP 11 mEq/L (8-16); CARBON DIOXIDE 20 mEq/l (22-31); CHLORIDE 107 mEq/L (97-110); ETHANOL SERUM < 10 mg/dL (0-10); GLOMERULAR FILTRATION RATE > 60; GLUCOSE 84 mg/dL (70-100); POTASSIUM 4.2 mEq/L (3.5-5.2); SALICYLATE < 1.0 mg/dL (2.0-20.0); SODIUM 138 mEq/L (134-144)
--- NOTE | 2016-11-20 16:52 | ASMTCMCOM ---
CM Note CM Note Notes: Case Management received call from Bernadette at [facility] re patient that was admitted to the [facility] from [facility] on an M1 hold. This patient was discharged from [facility]) to [facility], yesterday. Patient was returning to [facility] as he had been a patient there prior to his admission to [facility] on 11/04/16. Patient returned to [facility] yesterday with a Level I PASSR. The patient is currently in the ER waiting for a mental health evaluation by [facility]. Bernadette is on her way for this evaluation. I have reached out to the wage and salary administrator at [facility], Grace . She explains to me that patient appeared to be doing well upon his return to [facility] yesterday and this morning, until he presented to the nurses desk with his hands bloody, stating that he wanted to hurt himself. An senior manager creative services from [facility] was present at this time (working on a Level II PASSR) and told the staff that the patient should be put back on an M1 hold and return to the hospital. I have communicated this information to Bernadette with [facility] as well as the patient's MANAGER CUSTOMER SERVICE, Delbert Fried and Dr. Edmond. Patient remains on an M1 hold at this time and disposition is dependent upon further evaluation. I have confirmed with Grace at [facility] that Bernadette from [facility] can/will contact her at once evaluation is completed IF Bernadette believes that M1 should be lifted and patient is appropriate for return to [facility]TC. Grace also confirms with me that the patient's current Level I PASSR is valid for his return IF patient is stable/appropriate for return to [facility] Date Signed: 11/20/2016 04:51 PM Electronically Signed By:Madelyn Banuelos RN
[2016-11-20 21:07] VITALS: BP 119/64; PULSE 80; RESP 16; TEMP 98.2
== END 2016-11-20 21:06 | disposition home or self-care (01) ==
LOC: EDUNIT#
DX: S60.511A Abrasion of right hand, initial encounter (principal); F32.2 Major depressive disorder, single episode, severe without psychotic features; Z95.0 Presence of cardiac pacemaker; X78.8XXA Intentional self-harm by other sharp object, initial encounter
CPT/HCPCS: 80305; G0480